=== PATIENT | female | born 1995 | race African-American/Black ===

== ENCOUNTER 2023-05-02 23:17 | Emergency (ER) | payer SELFPAY ==
--- OUTSIDE RECORDS SUMMARY | 2023-05-02 23:22 | XMS REPORT | Continuity of Care Document ---
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 code = 174 x10 3/uL 140.0-440.0 N PLTT) Mean Platelet Volume (test code 11.2 fL = MPV) Immature Granulocytes % (Auto) 0.2 % 0.0-5.0 N (test code = IMMGRAN%) Neutrophils % (Auto) (test code 52.4 % 36.0-70.0 N = NE%) Lymphocytes % (Auto) (test code 39.4 % 12.0-44.0 N = LY%) Monocytes % (Auto) (test code = 6.8 % 0.0-11.0 N MO%) Eosinophils % (Auto) (test code 0.8 % 0.0-7.0 N = EO%) Basophils % (Auto) (test code = 0.4 % 0.0-2.0 N BA%) Immature Granulocytes # (Auto) 0.01 x10 3/uL (test code = IMMGRAN#) Neutrophils # (Auto) (test code 2.7 x10 3/uL 1.6-7.4 N = NE#) Lymphocytes # (Auto) (test code 2.04 x10 3/uL 0.50-4.60 N = LY#) Monocytes # (Auto) (test code = 0.35 x10 3/uL 0.00-1.20 N MO#) Eosinophils # (Auto) (test code 0.04 x10 3/uL 0.00-0.74 N = EO#) Basophils # (Auto) (test code = 0.02 x10 3/uL 0.00-0.21 N BA#) nRBC Abs (test code = NRBCA) 0 nRBC Pct (test code = NRBCP) 0 % Comprehensive Metabolic [id number] 16:03:00 Test Item Value Reference Range Interpretation Comments SODIUM (test code = NA) 140.0 mmol/L 136.0-145.0 N Potassium,K (test code = 3.8 mmol/L 3.0-5.1 N K) Chloride (test code = 111 mmol/L 98-107 H CL) Carbon Dioxide (test 25 mmol/L 20-31 N code = CO2) Anion Gap (test code = 4 mmol/L 5-15 L GAP) Blood Urea Nitrogen 8 mg/dL 9-23 L (test code = BUN) Creatinine (test code = 0.90 mg/dL 0.55-1.02 N CREATT) Creatinine Clr Calc mL/min CRCL Not Pharmacy (test code = calcul ated, Ht < CRCLPHA) 5ft Estimated Glomerular 90 See_Comment Reporte d eGFR is Filt Rate (test code = based on the EGFR.XX) CKD-EPI 2020 equation thatdo es not use a race coefficient. Additional information can be found at:53-07-6923_u cb_ egfr_summary_fl peyman 5.pdf (kidney.o rg) [Automated message] The system which generated this result transmit rachel reference range : >=90 ml/min/1.73m2. The reference range was not used to interpret this result as normal/abnormal . BUN/Creatinine Ratio 9 ratio 10-20 L (test code = BCRATIO) Glucose (test code = 96 mg/dL 74-106 N GLU) Osmolality,Calculated 287.8 (test code = OSMOC) Calcium (test code = CA) 9.6 mg/dL 8.3-10.6 N Bilirubin,Total (test 0.6 mg/dL 0.2-1.1 N code = BILIT) Aspartate Amino 18 U/L 0-34 N Transferase (test code = AST) Alanine Aminotransferase 11 U/L 10-49 N (test code = ALT) Total Protein (test code 7.0 g/dL 5.7-8.2 N = TP) Albumin Level (test code 4.6 g/dL 3.2-4.8 N = ALB) Globulin (test code = 2.4 mg/dL 2.3-3.5 N GLOB) Albumin/Globulin Ratio 1.9 ratio 0.8-2.0 N (test code = AGRATIO) Alkaline Phosphatase 51 U/L 46-116 N (test code = ALP) Ethanol [id number] 16:03:00 Test Item Value Reference Range Interpretation Comments Ethanol (test code 4 mg/dL The pharm acological = ETOH) response to blo od alcohol levels mayvary from individual to i ndividual. The fatal ebony ntrationhas been reported t o be >400mg/dL. [id number] 16:03:00 Test Item Value Reference Range Interpretation Comments Acetaminophen (test < 0.2 mg/dL Interpre tive Comment: code = ACET) Therapeutic ran ge: 1.0-2.0 mg/dl T oxic concentration 4 hours post ingestion: >15.0 mg/dl Toxic concentration 1 2 hours post jacob stion: >4.0 mg/dl [id number] 16:03:00 Test Item Value Reference Range Interpretation Comments Salicylate (test code < 3.0 mg/dL Salicy late is toxic = SHERIDAN) above 30 mg/dL for adults. 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 Analgesic and Antipyretic Use ? 20- 100 mg/L ? ? Anti-Inflammatory Use ? 100-250 mg/L Toxic Range: ? Greater than 300 mg/LUnChildren's Medical Center PlanoAcetaminophen2023-08-17 09:26:04 Test Item Value Reference Range Interpretation Comments ACETAMINOP (test code = 12.0 ug/mL 10.0-30.0 0722750440) DILLON (test code = DILLON) Toxic: Greater than 200 ug/mL @ 4 hour post ingestion or greater than 50 ug/mL @ 12 hour post ingestion Lab Interpretation (test Normal code = 97915-6) [facility] CenterCom[facility] (83269) 2023-01-30 09:25:49 Test Item Value Reference Range Interpretation Comments NA (test code = 140 mmol/L 135-145 3411370317) K (test code = 3.7 mmol/L 3.5-5.0 2445710221) CL (test code = 109 mmol/L 98-108 H 4434309082) CO2 TOTAL (test code = 25 mmol/L 23-31 1746517520) AGAP (test code = 6 2-16 8621541704) BUN (test code = 9 mg/dL 7-23 6210617196) GLUCOSE (test code = 73 mg/dL 70-110 8617558828) CREATININE (test code = 0.72 mg/dL 0.50-1.04 0730312296) TOTAL BILI (test code = 0.4 mg/dL 0.1-1.4 3334625504) CALCIUM (test code = 9.2 mg/dL 8.6-10.6 8183304574) T PROTEIN (test code = 6.5 g/dL 6.3-8.2 3735065125) ALBUMIN (test code = 4.0 g/dL 3.5-5.0 6132310212) ALK PHOS (test code = 44 U/L 34-122 3595600097) ALTv (test code = 14 U/L 5-35 1742-6) AST(SGOT) (test code = 21 U/L 13-40 4341099286) eGFR (test code = 97.9 mL/min/1.73m2 4262698052) DILLON (test code = DILLON) Association of Glomerular Filtration Rate (GFR) and Staging of Kidney Disease* + --+ --+ ------+| GFR (mL/min/1.73 m2) ?| With Kidney Damage ?| ?Without Kidney Damage+ --------+ --------+ +| ?>90 ?| ?Stage one ?| ? Normal ?+ ---+ ---+ -------+| ?60-89 ?| ?Stage two ?| ? Decreased GFR ? + --+ --+ ------+| ?30-59 ?| ?Stage three ?| ? Stage three ? + --+ --+ ------+| ?15-29 ?| ?Stage four ? | ? Stage four ?+ ---+ ---+ -------+| ?<15 (or dialysis) ? ?| ?Stage five ? | ? Stage five ?+ ---+ ---+ -------+ *Each stage assumes the associated GFR level has been in effect for at least three months. ?Stages 1 to 5, with or without kidney disease, indicate chronic kidney disease. Notes: Determination of stages one and two (with eGFR >59mL/min/1.73 m2) requires estimation of kidney damage for at least three months as defined by structural or functional abnormalities of the kidney, manifested by either:Pathological abnormalities or Markers of kidney damage (including abnormalities in the composition of the blood or urine or abnormalities in imaging tests). Lab Interpretation Abnormal (test code = 99242-4) [facility] with Pclppskdjdbl0123-89-92 09:13:46 Test Item Value Reference Range Interpretation Comments WBC (test code = 6.49 See_Comment [Automated 9962-2) message] The sy stem which generated this result transmitted reference range : 4.30 - 11.10 10*3/?L. The reference range was not used to interpret this result as normal/abnormal . RBC (test code = 4.00 See_Comment [Automated 707-8) message] The sy stem which generated this result transmitted reference range : 3.93 - 5.25 10*6/?L. The reference range was not used to interpret this result as normal/abnormal . HGB (test code = 12.0 g/dL 11.6-15.0 718-7) HCT (test code = 34.9 % 35.7-45.2 L 4544-3) MCV (test code = 87.3 fL 80.6-95.5 787-2) MCH (test code = 30.0 pg 25.9-32.8 785-6) MCHC (test code = 34.4 g/dL 31.6-35.1 786-4) RDW-SD (test code = 41.1 fL 39.0-49.9 45032-4) RDW-CV (test code = 13.0 % 12.0-15.5 788-0) PLT (test code = 165 See_Comment L [Automated 777-3) message] The sy stem which generated this result transmitted reference range : 166 - 358 10*3/ ?L. The reference r mike was not used to interpret this result as normal/abnormal . MPV (test code = 11.7 fL 9.5-12.9 48679-9) NRBC/100 WBC (test 0.0 See_Comment [Automat ed code = 2240938864) message] The system which generated this result transmitted reference range : 0.0 - 10.0 /100 WBCs. The refer ence range was not u sed to interpret th is result as normal/abnormal . NRBC x10^3 (test code See_Comment [Auto mated = 7470217020) message] The s ystem which generated this result transmitted reference range : 10*3/?L. The reference range was not used to interpret this result as normal/abnormal . GRAN MAT (NEUT) % 48.5 % (test code = 770-8) IMM GRAN % (test code 0.20 % = 2971746169) LYMPH % (test code = 42.5 % 736-9) MONO % (test code = 6.6 % 5905-5) EOS % (test code = 1.7 % 713-8) BASO % (test code = 0.5 % 706-2) GRAN MAT x10^3(ANC) 3.15 10*3/uL 1.88-7.09 (test code = 1581765940) IMM GRAN x10^3 (test 0.00-0.06 code = 9787725427) LYMPH x10^3 (test code 2.76 10*3/uL 1.32-3.29 = 731-0) MONO x10^3 (test code 0.43 10*3/uL 0.33-0.92 = 742-7) EOS x10^3 (test code = 0.11 10*3/uL 0.03-0.39 711-2) BASO x10^3 (test code 0.03 10*3/uL 0.01-0.07 = 704-7) Lab Interpretation Abnormal (test code = 08793-6) [facility]- XR HAND 3 + V [id number] 00:00:00 [facility] : 1995 Sex: F PatientName: JESSICA SIMMONS Unit No: [id number] EXAMS: CPT CODE: [id number] XR HAND 3 + V RT [id number] PROCEDURE INFORMATION: Exam: XR Right Hand Exam date and time: 08/17/2021 5:27 PM Age: 26 years old Clinical indication: Injury or trauma; Other: Unknown; Sprain or strain; Hand; Right; Additional info: Hand pain andswelling S/P trauma TECHNIQUE: Imaging protocol: XR Right hand. Views: 3 or more views. Frontal Oblique Lateral COMPARISON: No relevant prior studies available. FINDINGS: Bones/joints: No acute fracture or dislocation identified. Soft tissues: Dorsal hand soft tissue swelling is present. IMPRESSION: Soft tissue swelling. No acute bony finding. at 1817 Reported and signed by: Tacos Vyas MD CC: April Aponte MD Technologist: RT John Trnscrbd D/ (1816) [email or web address].[email or web address] Orig Print D/T: S: 08/17/2021 (1817) [facility] NAME: JESSICA SIMMONS Radiology Department PHYS: April Ndiaye MD [address] : 1995 AGE: 26 SEX: F [place], [place] [address] LOC: [facility] PHONE #: [phone] EXAM DATE: 08/17/2021 STATUS: MISTY ER FAX #: [phone] RAD NO: Page 1 Signed ReportCOVID 19 Asymptomatic IH [id number] 19:09:00 Test Item Value Reference Range Interpretation Comments COVID 19 NEGATIVE NEGATIVE This test has b een Asymptomatic IH AG authorize d only for the (test code = detection ofpro teins from COVNONPUIAG) SARS-CoV-2, not for any other viruses orpathogens. Ne gative results should be treated as presumptive andconfirmed wi th a molecular assay , if necessary for patientmanageme nt. Negative result s do not rule out COVID- 19 andshould not b e used as the sole basis for treatment orpat ient management deci sions, including infec tion controldecision s. Negative result s should be considered i n thecontext of a patient's recent exposure s, history and thepresence of clinical signs and symptoms consis tent withCOVID-19. T his test has not been FD A cleared or approved; th e test hasbeen authori bharat by FDA under an Emerge ncy Use Authorization(E UA) for use by laborato homar certified under the CLIA thatmeet the re quirements to perform mode rate, high or waivedcomple xity tests. This evangelist t is authorized for use at thePoint of Car e (POC), i.e., in patien t care settingsoperati ng under a CLIA Certificat e of Waiver, Certifi mal ofCompliance, o r Certificate of Accreditation. This test is only authori zemary for the duration of thedeclaration that circumstances e xist justifying theauthorizatio n of emergency use o f in vitro diagnostic test sfor detection and/o r diagnosis of CO VID-19 under Hyzgzrn64 4(b)(1) of the Act, 21 U.S .C. 360bbb-3(b)(1), unless theauthorizatio n is terminated or r evoked sooner. COMPREHENSIVE METABOLIC [id number] 16:02:00 Test Item Value Reference Range Interpretation Comments SODIUM (test code = NA) 142 mEq/L 135-145 N POTASSIUM (test code = K) 4.1 mEq/L 3.5-5.0 N CHLORIDE (test code = CL) 107 mEq/L 100-115 N CARBON DIOXIDE (test code = CO2) 27 mEq/L 22-31 N ANION GAP (test code = GAP) 12.10 10-20 N GLUCOSE (test code = GLU) 79 mg/dL 65-110 N BLOOD UREA NITROGEN (test code = 8 mg/dL 7-18 N BUN) GLOMERULAR FILTRATION RATE (test 99 ml/min >60 N code = GFR) CREATININE (test code = CREAT) 0.8 mg/dL 0.5-1.0 N TOTAL PROTEIN (test code = PROT) 7.2 gm/dL 6.3-8.2 N ALBUMIN (test code = ALB) 4.0 gm/dL 3.4-4.8 N CALCIUM (test code = CA) 9.1 mg/dL 8.4-10.2 N BILIRUBIN TOTAL (test code = BILT) 0.5 mg/dL 0.2-1.0 N SGOT/AST (test code = AST) 27 units/L 15-37 N SGPT/ALT (test code = ALT) 44 units/L 12-78 N ALKALINE PHOSPHATASE TOTAL (test 46 units/L 46-116 N code = ALKP) CBC W/AUTO [id number] 15:10:00 Test Item Value Reference Range Interpretation Comments WHITE BLOOD CELL (test code = WBC) 5.2 K/mm3 6.5-12.3 L RED BLOOD CELL (test code = RBC) 3.94 M/mm3 3.51-4.69 N HEMOGLOBIN (test code = HGB) 11.9 g/dL 10.1-13.8 N HEMATOCRIT (test code = HCT) 34.6 % 32.5-41.8 N MEAN CELL VOLUME (test code = MCV) 87.8 fL 84.6-96.6 N MEAN CELL HGB (test code = MCH) 30.2 pg 27.3-33.9 N MEAN CELL HGB CONCETRATION (test 34.4 gm/dL 32.0-34.2 H code = MCHC) RED CELL DISTRIBUTION WIDTH (test 12.3 % 12.2-16.3 N code = RDW) PLATELET COUNT (test code = PLT) 180 K/mm3 134-363 N MEAN PLATELET VOLUME (test code = 10.9 fL 9.2-12.7 N MPV) NEUTROPHIL % (test code = NT%) 51.9 % 57.9-77.3 L LYMPHOCYTE % (test code = LY%) 40.1 % 14.5-29.7 H MONOCYTE % (test code = MO%) 6.4 % 3.6-10.2 N EOSINOPHIL % (test code = EO%) 0.6 % 0.0-3.0 N BASOPHIL % (test code = BA%) 0.6 % 0.1-0.9 N NEUTROPHIL # (test code = NT#) 2.7 K/mm3 LYMPHOCYTE # (test code = LY#) 2.1 K/mm3 MONOCYTE # (test code = MO#) 0.3 K/mm3 EOSINOPHIL # (test code = EO#) 0.03 K/mm3 BASOPHIL # (test code = BA#) 0.0 K/mm3 RBC MORPHOLOGY REQUIRED (test code NORMAL NORMAL = RBCM) PLATELET MORPHOLOGY REQUIRED (test NORMAL NORMAL code = PLTMR) - XR HAND 3+V [id number] 02:56:00 [facility] 1995 Sex: F Patient Name: JESSICA SIMMONS Unit No: [id number] EXAMS: CPT CODE: [id number] XR HAND 3+[place] [address] - XR HAND 3+V RT, 10/09/2020 2:22 AM Reason For Examination: Pain s/p fall Comparison: None available Location: R16: Findings: No evidence of acute fracture or dislocation. No radiopaque foreign body. Impression: No plain film evidence of acute fracture or dislocation Electronically Signed by Jhon Bill on10/09/2020 at 0256 Reported and signed by: Jhon Bill CC: Edvin LAL; Jax Cagle Technologist: Jarocho Viveros, RT(R) Transcrpt Date/Tm/Trnsp: 10/09/2020 (025) t.[email or web address] Orig Print D/T: S: 10/09/2020 (0259) [facility] NAME: JESSICA SIMMONS [address] PHYS: [place] [address] : 1995 AGE: 25 SEX: F LOC: [facility] PHONE #:[phone] EXAM DATE: 10/09/2020 STATUS: REG ER FAX #: [phone] RADIOLOGY NO: PAGE 1 Signed Report- XR WRIST 3 + V RT 2020-10-09 02:55:00 [facility] : 1995 Sex: F Patient Name: JESSICA SIMMONS Unit No: [id number] EXAMS: CPT CODE: [id number] XR WRIST 3 + [place] RT [address] - XR WRIST 3 + V RT, 10/09/2020 2:22 AM Reason For Examination: Pain s/p fall Comparison: None available Location: R16:Findings: No evidence of acute fracture or dislocation. No radiopaque foreign body. Impression: No plain film evidence of acute fracture or dislocation at 0255 Reported and signed by: Alejandro Bill CC: Edvin LAL; Jax Burger MD Technologist: Jarocho Viveros, RT(R) Transcrpt Date/Tm/Trnsp: 10/09/2020 (254) NithinRSaudSR31 Orig Print D/T: S: 10/09/2020 (257) [facility] NAME: JESSICA SIMMONS [address] PHYS: [place] [address] : 1995 AGE: 25 SEX: F LOC: [facility] PHONE #: [phone] EXAM DATE: 10/09/2020 STATUS: REG ER FAX #: [phone] RADIOLOGY NO: PAGE 1 Signed ReportNeisseria gonorrhoeae, throat [id number] 15:11:00 Test Item Value Reference Range Interpretation Comments Neisseria gonorrhoeae, throat Negative Negative culture (test code = 3553) [facility] [id number] 15:11:00 Test Item Value Reference Range Interpretation Comments hepatitis B surface antigen (test Negative Negative code = 79) [facility], [id number] 15:11:00 Test Item Value Reference Range Interpretation Comments hepatitis C antibody, serum (test code 0.1 0.0-0.9 = 5199-5) [facility] (Chemiluminescent Microparticle Immuno Assay) 2019-10-29 15:11:00 Test Item Value Reference Range Interpretation Comments HIV-CMIA (Chemiluminescent Non Reactive Non Reactive Microparticle Immuno Assay) (test code = 102524) [facility] plasma reagin antibody, [id number] 15:11:00 Test Item Value Reference Range Interpretation Comments rapid plasma reagin antibody, Non Reactive Non Reactive serum (test code = 5291-0) [facility]HERPES SIM[facility]X VIRUS TYPE 1 AB.IGG (PT; SER; QN; ) 2019-10-29 15:11:00 Test Item Value Reference Range Interpretation Comments HERPES SIMPLEX VIRUS TYPE 1 49.00 index 0.00-0.90 H AB.IGG (PT; SER; QN; ) (test code = 2432) [facility] HospitalNeisseria gonorrhoeae DNA [id number] 15:11:00 Test Item Value Reference Range Interpretation Comments Neisseria gonorrhoeae DNA probe Negative Negative (test code = 90722-2) [facility] [id number] 15:11:00 Test Item Value Reference Range Interpretation Comments chlamydia DNA probe (test code = Negative Negative 61127-0) [facility] [id number] 14:46:52 Test Item Value Reference Range Interpretation Comments HIV rapid test results (test code = negative 90520) [facility]URINAL[facility]IS [id number] 14:05:00 Test Item Value Reference Range Interpretation Comments UA COLOR (test code = YELLOW YELLOW COLU) UA APPEARANCE (test code CLEAR CLEAR = APPU) UA GLUCOSE DIPSTICK (test NORMAL MG/DL NORMAL code = DGLUU) UA BILIRUBIN DIPSTICK NEGATIVE MG/DL NEGATIVE (test code = BILU) UA KETONE DIPSTICK (test NEGATIVE MG/DL NEGATIVE code = KETU) UA SPECIFIC GRAVITY (test 1.010 1.003-1.030 N code = SGU) UA BLOOD DIPSTICK (test NEGATIVE Chidi/mm3 NEGATIVE code = KAREN) UA PH DIPSTICK (test code 6.5 5.0-9.0 N = JER) UA PROTEIN DIPSTICK (test NEGATIVE MG/DL NEGATIVE code = PROU) UA UROBILINIOGEN DIPSTICK NORMAL MG/DL NORMAL (test code = URO) UA NITRITE DIPSTICK (test NEGATIVE NEGATIVE code = NADINE) UA LEUKOCYTE ESTERASE NEGATIVE /mm3 NEGATIVE DIPSTICK (test code = LEUU) UA CULTURE NEEDED? (test NEGATIVE, NO CULTURE Culture Chk code = UACULT) Criteria SOURCE OF URINE: CLEAN CATCHUR HCG [id number] 14:05:00 Test Item Value Reference Range Interpretation Comments UR HCG QUAL (test code = HCGQLU) NEGATIVE NEGATIVE SOURCE OF URINE: CLEAN CATCHURINALYSIS [id number] 14:02:00 Test Item Value Reference Range Interpretation Comments UA COLOR (test code = COLU) YELLOW YELLOW UA APPEARANCE (test code = CLEAR CLEAR APPU) UA GLUCOSE DIPSTICK (test NORMAL MG/DL NORMAL code = DGLUU) UA BILIRUBIN DIPSTICK (test NEGATIVE MG/DL NEGATIVE code = BILU) UA KETONE DIPSTICK (test NEGATIVE MG/DL NEGATIVE code = KETU) UA SPECIFIC GRAVITY (test 1.010 1.003-1.030 N code = SGU) UA BLOOD DIPSTICK (test code NEGATIVE Chidi/mm3 NEGATIVE = KAREN) UA PH DIPSTICK (test code = 6.5 5.0-9.0 N JER) UA PROTEIN DIPSTICK (test NEGATIVE MG/DL NEGATIVE code = PROU) UA UROBILINIOGEN DIPSTICK NORMAL MG/DL NORMAL (test code = URO) UA NITRITE DIPSTICK (test NEGATIVE NEGATIVE code = NADINE) UA LEUKOCYTE ESTERASE NEGATIVE /mm3 NEGATIVE DIPSTICK (test code = LEUU) UA CULTURE NEEDED? (test Criteria Culture Chk code = UACULT) SOURCE OF URINE: CLEAN CATCHUR HCG [id number] 14:02:00 Test Item Value Reference Range Interpretation Comments UR HCG QUAL (test code = HCGQLU) NEGATIVE SOURCE OF URINE: CLEAN CATCHRAPID PLASMA [id number] 23:42:00 Test Item Value Reference Range Interpretation Comments RAPID PLASMA REAGIN (test code = NON REAC NON REAC RPR) HIV 12 AB [id number] 23:42:00 Test Item Value Reference Range Interpretation Comments HIV 1 2 COMBO AG/AB SCREEN AB/AG NON REACTIVE NONREACTIVE (test code = [id number]) RAPID PLASMA [id number] 16:14:00 Test Item Value Reference Range Interpretation Comments RAPID PLASMA REAGIN (test code = RPR) NON REAC HIV 12 AB [id number] 16:14:00 Test Item Value Reference Range Interpretation Comments HIV 1 2 COMBO AG/AB SCREEN AB/AG NON REACTIVE NONREACTIVE (test code = [id number]) COMPREHENSIVE METABOLIC [id number] 15:18:00 Test Item Value Reference Range Interpretation Comments SODIUM (test code = NA) 139 MMOL/L 137-145 N POTASSIUM (test code = 3.9 MMOL/L 3.5-5.1 N K) CHLORIDE (test code = 106 MMOL/L 98-107 N CL) CARBON DIOXIDE (test 27 MMOL/L 22-30 N code = CO2) GLUCOSE (test code = 72 MG/DL 74-106 L GLU) BLOOD UREA NITROGEN 15 MG/DL 7-17 N (test code = BUN) GLOMERULAR FILTRATION > 60 Report ing units: RATE (test code = GFR) ml/mi n/1.73 m2 (Modified MDRD Formula)Referen ce Range: > or = 6 0 ml/min/1.73 m2 CREATININE (test code = 0.70 MG/DL 0.52-1.04 N CREAT) TOTAL PROTEIN (test 7.4 G/DL 6.3-8.2 N code = PROT) ALBUMIN (test code = 4.3 G/DL 3.5-5.0 N ALB) CALCIUM (test code = 9.4 MG/DL 8.4-10.2 N CA) BILIRUBIN TOTAL (test 0.3 MG/DL 0.2-1.3 N code = BILT) SGOT/AST (test code = 25 UNITS/L 14-36 N AST) SGPT/ALT (test code = 13 UNITS/L <35 ALT) ALKALINE PHOSPHATASE 56 UNITS/L 38-126 N (test code = ALKP) HCG SERUM [id number] 15:18:00 Test Item Value Reference Range Interpretation Comments HCG SERUM QUAL (test code = HCGQL) NEGATIVE NEGATIVE A COMPREHENSIVE METABOLIC [id number] 14:59:00 Test Item Value Reference Range Interpretation Comments SODIUM (test code = NA) 139 MMOL/L 137-145 N POTASSIUM (test code = 3.9 MMOL/L 3.5-5.1 N K) CHLORIDE (test code = 106 MMOL/L 98-107 N CL) CARBON DIOXIDE (test 27 MMOL/L 22-30 N code = CO2) GLUCOSE (test code = 72 MG/DL 74-106 L GLU) BLOOD UREA NITROGEN 15 MG/DL 7-17 N (test code = BUN) GLOMERULAR FILTRATION > 60 Report ing units: RATE (test code = GFR) ml/mi n/1.73 m2 (Modified MDRD Formula)Referen ce Range: > or = 6 0 ml/min/1.73 m2 CREATININE (test code = 0.70 MG/DL 0.52-1.04 N CREAT) TOTAL PROTEIN (test 7.4 G/DL 6.3-8.2 N code = PROT) ALBUMIN (test code = 4.3 G/DL 3.5-5.0 N ALB) CALCIUM (test code = 9.4 MG/DL 8.4-10.2 N CA) BILIRUBIN TOTAL (test 0.3 MG/DL 0.2-1.3 N code = BILT) SGOT/AST (test code = 25 UNITS/L 14-36 N AST) SGPT/ALT (test code = 13 UNITS/L <35 ALT) ALKALINE PHOSPHATASE 56 UNITS/L 38-126 N (test code = ALKP) HCG SERUM [id number] 14:59:00 Test Item Value Reference Range Interpretation Comments HCG SERUM QUAL (test code = HCGQL) NEGATIVE COMPREHENSIVE METABOLIC [id number] 14:58:00 Test Item Value Reference Range Interpretation Comments SODIUM (test code = NA) 139 MMOL/L 137-145 N POTASSIUM (test code = 3.9 MMOL/L 3.5-5.1 N K) CHLORIDE (test code = 106 MMOL/L 98-107 N CL) CARBON DIOXIDE (test 27 MMOL/L 22-30 N code = CO2) GLUCOSE (test code = 72 MG/DL 74-106 L GLU) BLOOD UREA NITROGEN 15 MG/DL 7-17 N (test code = BUN) GLOMERULAR FILTRATION > 60 Report ing units: RATE (test code = GFR) ml/mi n/1.73 m2 (Modified MDRD Formula)Referen ce Range: > or = 6 0 ml/min/1.73 m2 CREATININE (test code = 0.70 MG/DL 0.52-1.04 N CREAT) TOTAL PROTEIN (test 7.4 G/DL 6.3-8.2 N code = PROT) ALBUMIN (test code = 4.3 G/DL 3.5-5.0 N ALB) CALCIUM (test code = MG/DL 8.7-9.7 CA) BILIRUBIN TOTAL (test 0.3 MG/DL 0.2-1.3 N code = BILT) SGOT/AST (test code = 25 UNITS/L 14-36 N AST) SGPT/ALT (test code = 13 UNITS/L <35 ALT) ALKALINE PHOSPHATASE 56 UNITS/L 38-126 N (test code = ALKP) HCG SERUM [id number] 14:58:00 Test Item Value Reference Range Interpretation Comments HCG SERUM QUAL (test code = HCGQL) NEGATIVE COMPREHENSIVE METABOLIC [id number] 14:57:00 Test Item Value Reference Range Interpretation Comments SODIUM (test code = NA) 139 MMOL/L 137-145 N POTASSIUM (test code = 3.9 MMOL/L 3.5-5.1 N K) CHLORIDE (test code = 106 MMOL/L 98-107 N CL) CARBON DIOXIDE (test MMOL/L 22-30 code = CO2) GLUCOSE (test code = MG/DL 74-106 GLU) BLOOD UREA NITROGEN MG/DL 7-17 (test code = BUN) GLOMERULAR FILTRATION > 60 Report ing units: RATE (test code = GFR) ml/mi n/1.73 m2 (Modified MDRD Formula)Referen ce Range: > or = 6 0 ml/min/1.73 m2 CREATININE (test code = 0.70 MG/DL 0.52-1.04 N CREAT) TOTAL PROTEIN (test G/DL 6.3-8.2 code = PROT) ALBUMIN (test code = 4.3 G/DL 3.5-5.0 N ALB) CALCIUM (test code = MG/DL 8.7-9.7 CA) BILIRUBIN TOTAL (test 0.3 MG/DL 0.2-1.3 N code = BILT) SGOT/AST (test code = UNITS/L 15-37 AST) SGPT/ALT (test code = UNITS/L <35 ALT) ALKALINE PHOSPHATASE UNITS/L 38-126 (test code = ALKP) HCG SERUM [id number] 14:57:00 Test Item Value Reference Range Interpretation Comments HCG SERUM QUAL (test code = HCGQL)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
[2023-05-03] MEDS ORDERED: ACETAMINOPHEN 500 MG TAB ONE (00:27)
[2023-05-03] MEDS ORDERED: IBUPROFEN 400 MG TAB ONE (00:27)
[2023-05-03 00:30] LABS: Absolute Lymphocytes (CBC) 2.6 K/uL (0.7-4.9); Hematocrit 39.4 % (36.0-45.0); Lymphocytes % 37.9 % (15.3-44.8); MCV 88.7 fL (80-100); MPV 9.3 fL (7.6-11.3); Platelets 229 thou/uL (152-406); RBC Red Blood Cell Count 4.45 M/uL (3.86-4.86)
[2023-05-03 00:46] LABS: Potassium 3.6 mEq/L (3.5-5.1)
[2023-05-03] MEDS ORDERED: LIDOCAINE 2% W/EPI 1:200,000 MPF 20 ML VIAL IM ONE (01:24)
[2023-05-03 02:03] LABS: Specific Gravity 1.021 (1.005-1.030)
--- NOTE | 2023-05-03 02:05 | EDPHYS ---
Physician Documentation [facility] Name: Crissy Bazzi Age: 28 yrs Sex: Female : 1995 Arrival Date: 05/02/2023 Time: 23:17 Bed 19 Private MD: ED Physician Philippe Chávez HPI: 05/02 23:46 This 28 yrs old Black Female presents to ER via Ambulatory with complaints of High ec2 Blood Pressure. 23:46 Patient arrives today for evaluation of asymptomatic hypertension. States that she has ec2 noted blood pressures in the 150s to 160s range, reports that she has no difficulty breathing or chest pain. Patient reports she has nonspecific headaches occasionally. Reports that she has been seen multiple times for same complaints and has not been started on antihypertensive. States that she does not have a primary care doctor. It seems her primary reason of coming to the ED tonight is specifically because she has dentalgia, was told she needed to have the tooth removed however the dentist would not remove her tooth with her blood pressure. Patient is on amoxicillin for her possible dental infection.. Historical: - Allergies: 23:27 No Known Allergies; rv - PMHx: 23:27 None; rv - PSHx: 23:27 None; rv - Immunization history:: Adult Immunizations up to date. - Social history:: Smoking status: Patient reports the use of cigarette tobacco products, smokes one pack cigarettes per day. ROS: 23:46 Constitutional: as per hpi ec2 Exam: 23:46 Constitutional: GEN: NAD Head: atraumatic Eyes: EOMI Ears: External ears are normal. ec2 Mouth: Dental caries noted to the second and third teeth. No erythema at the gumline noted. No facial swelling noted CV: regular rate LUNGS: no respiratory distress ABD: non-distended SKIN: no evidence of rashes MSK: no evidence of trauma NEURO: moves all extremities equally Vital Signs: 23:24 BP 153 / 105; Pulse 89; Resp 18; Temp 98; Pulse Ox 100% ; Weight 50.8 kg; Height 4 ft. rv 10 in. ; 05/03 00:45 BP 148 / 97; Pulse 88; Resp 16; Pulse Ox 100% on R/A; jb4 01:45 BP 161 / 95; Pulse 85; Resp 16; Pulse Ox 99% on R/A; jb4 05/02 23:24 Body Mass Index 23.41 (50.80 kg, 147.32 cm) rv Procedures: 01:16 Nerve block: (dental) of Posterior Superior Alveolar Nerve Block. Medication: Lidocaine ec2 1% with epinephrine, Amount: 10 mls were injected, Effect: the patient's symptoms are improved, Performed by Philippe Chávez MD Patient tolerated well. MDM: 05/02 23:23 Patient medically screened. ec2 23:46 Data reviewed: vital signs. ED course: patient arrives today due to concern for ec2 asymptomatic hypotension. Examination remarkable for well-appearing nontoxic individual is otherwise in no acute distress. Will obtain basic lab work to evaluate for endorgan dysfunction. We will also send urine testing. I instructed her that we will obtain this lab work and potentially start her and an antihypertensive. 05/03 01:03 ED course: CBC and metabolic profile reassuring.. ec2 01:18 ED course: Tylenol and ibuprofen given for her dentalgia, I performed a dental block ec2 with improvement in her pain.. 02:04 ED course: Urine pride negative. Will discharge home prescription for ec2 hydrochlorothiazide. Return precautions given.. 05/02 23:45 Order name: CBC with Diff; Complete Time: 01:02 ec2 05/02 23:45 Order name: BMP; Complete Time: 01:02 ec2 05/02 23:45 Order name: Test, Urine; Complete Time: 02:04 ec2 Administered Medications: 00:25 Drug: Acetaminophen PO 1000 mg PO once Route: PO; jb4 00:25 Drug: Ibuprofen PO 800 mg PO once Route: PO; jb4 01:31 Not Given (Other Intervention Used): fjfrzievo-iajvfqjnqlu-1%: (1:100,000) 10 ml 20 ml jb4 Infiltration once; to bedside 01:31 Drug: Lidocaine-Epinephrine Infiltration -2 % (1:100,000) 10 ml Infiltration once; to jb4 bedside {Note: administered by ER provider.} Route: Infiltration; Disposition Summary: 05/03/23 02:05 Discharge Ordered Notes: Location: Home ec2 Condition: Stable ec2 Diagnosis - Essential (primary) hypertension ec2 - Dental caries, unspecified ec2 Followup: ec2 - With: Private Physician - When: - Reason: Recheck today's complaints Discharge Instructions: - Discharge Summary Sheet ec2 - Dental Caries, Adult ec2 - Hypertension, Adult ec2 Forms: - Medication Reconciliation Form ec2 - Thank You Letter ec2 - Antibiotic Education ec2 - Prescription Opioid Use ec2 - Patient Portal Instructions ec2 - Leadership Thank You Letter ec2 Prescriptions: - Hydrochlorothiazide 12.5 mg Oral Tablet - take 1 tablet ORAL route once daily; 30 tablet; Refills: 0, Product Selection ec2 Permitted Signatures: Dispatcher [employer] EDShamir Jo RN RN jb4 Alan Babin RN RN Philippe Chávez MD MD ec2 Corrections: (The following items were deleted from the chart) 01:05/02 23:46 Patient arrives today for evaluation of asymptomatic hypertension. States ec2 that she has noted blood pressures in the 150s to 160s range, reports that she has no difficulty breathing or chest pain. Patient reports she has nonspecific headaches occasionally. Reports that she has been seen multiple times for same complaints and has not been started on antihypertensive. States that she does not have a primary care doctor. It seems her primary mode of of coming to the ED tonight is specifically because she has dentalgia, was told she needed to have the tooth removed however the dentist would not remove her tooth with related blood pressure. Patient is on amoxicillin for her possible dental infection.. ec2 05/03 01:18 05/02 23:46 Constitutional: GEN: NAD Head: atraumatic Eyes: EOMI Ears: External ears ec2 are normal. CV: regular rate LUNGS: no respiratory distress ABD: non-distended SKIN: no evidence of rashes MSK: no evidence of trauma NEURO: moves all extremities equally ec2
--- NOTE | 2023-05-03 02:05 | ER ---
Nurse's Notes [facility] Name: Crissy Bazzi Age: 28 yrs Sex: Female : 1995 Arrival Date: 05/02/2023 Time: 23:17 Bed 19 Private MD: Diagnosis: Essential (primary) hypertension;Dental caries, unspecified Presentation: 05/02 23:24 Chief complaint: Patient states: have been dealing with high blood pressure for approx rv 7 months now, and having problems with dental procedure because of high blood pressure. pt has no PCP at this time. and pt does not have a prescription for blood pressure. Coronavirus screen: At this time, the client does not indicate any symptoms associated with coronavirus-19. Ebola Screen: No symptoms or risks identified at this time. Initial Sepsis Screen: Does the patient meet any 2 criteria? No. Patient's initial sepsis screen is negative. Does the patient have a suspected source of infection? No. Patient's initial sepsis screen is negative. Risk Assessment: Do you want to hurt yourself or someone else? Patient reports no desire to harm self or others. 23:24 Method Of Arrival: Ambulatory rv 23:24 Acuity: FALLON 3 rv 23:24 Onset of symptoms was May 02, 2023. rv Triage Assessment: 23:27 General: Appears comfortable, Behavior is calm, cooperative. Pain: Denies pain. Neuro: rv Level of Consciousness is awake, alert, obeys commands, Oriented to person, place, time, situation. Cardiovascular: Capillary refill < 3 seconds Patient's skin is warm and dry. Respiratory: Airway is patent Respiratory effort is even, unlabored. Derm: Skin is intact. Historical: - Allergies: 23:27 No Known Allergies; rv - PMHx: 23:27 None; rv - PSHx: 23:27 None; rv - Immunization history:: Adult Immunizations up to date. - Social history:: Smoking status: Patient reports the use of cigarette tobacco products, smokes one pack cigarettes per day. Screenin/18 01:45 [facility] ED Fall Risk Assessment (Adult) History of falling in the last 3 months, jb4 including since admission No falls in past 3 months (0 pts). Abuse screen: Denies threats or abuse. Nutritional screening: No deficits noted. Tuberculosis screening: No symptoms or risk factors identified. Assessment: 00:30 Reassessment: Patient appears in no apparent distress at this time. Patient and/or jb4 family updated on plan of care and expected duration. Pain level reassessed. Patient is alert, oriented x 3, equal unlabored respirations, skin warm/dry/pink. 01:30 Reassessment: Patient appears in no apparent distress at this time. Patient and/or jb4 family updated on plan of care and expected duration. Pain level reassessed. Patient is alert, oriented x 3, equal unlabored respirations, skin warm/dry/pink. 02:27 Reassessment: Patient appears in no apparent distress at this time. Patient and/or jb4 family updated on plan of care and expected duration. Pain level reassessed. Patient is alert, oriented x 3, equal unlabored respirations, skin warm/dry/pink. Vital Signs: 05/02 23:24 BP 153 / 105; Pulse 89; Resp 18; Temp 98; Pulse Ox 100% ; Weight 50.8 kg; Height 4 ft. rv 10 in. ; 05/03 00:45 BP 148 / 97; Pulse 88; Resp 16; Pulse Ox 100% on R/A; jb4 01:45 BP 161 / 95; Pulse 85; Resp 16; Pulse Ox 99% on R/A; jb4 05/02 23:24 Body Mass Index 23.41 (50.80 kg, 147.32 cm) rv ED Course: 05/02 23:21 Patient arrived in ED. ag3 23:23 Philippe Chávez MD is Attending Physician. ec2 23:27 Triage completed. rv 23:28 Arm band placed on right wrist. rv 05/03 00:19 Inserted saline lock: 20 gauge in left antecubital area, using aseptic technique. Blood wm collected. 00:20 BMP Sent. wm 00:20 CBC with Diff Sent. wm 01:14 Shamir Cohen, RN is Primary Nurse. jb4 02:28 Patient has correct armband on for positive identification. Placed in gown. Bed in low jb4 position. Call light in reach. Side rails up X 1. 02:28 No provider procedures requiring assistance completed. IV discontinued, intact, jb4 bleeding controlled, No redness/swelling at site. Pressure dressing applied. Administered Medications: 00:25 Drug: Acetaminophen PO 1000 mg PO once Route: PO; jb4 00:25 Drug: Ibuprofen PO 800 mg PO once Route: PO; jb4 01:31 Not Given (Other Intervention Used): ynvywtncg-yeiygxqdwtt-7%: (1:100,000) 10 ml 20 ml jb4 Infiltration once; to bedside 01:31 Drug: Lidocaine-Epinephrine Infiltration -2 % (1:100,000) 10 ml Infiltration once; to jb4 bedside {Note: administered by ER provider.} Route: Infiltration; Outcome: 02:05 Discharge ordered by . ec2 02:28 Discharged to home ambulatory, jb4 02:28 Condition: stable 02:28 Discharge instructions given to patient, Instructed on discharge instructions, follow up and referral plans. medication usage, Demonstrated understanding of instructions, follow-up care, medications, Prescriptions given X :31 Patient left the ED. jb4 Signatures: Shamir Cohen, RN RN jb4 Alan Babin, RN RN Clari Hassan Wendy wm Corral, Edwin, MD MD ec2
[2023-05-03 02:47] VITALS: TEMP 98
[2023-05-03 02:58] VITALS: BP 161/95; O2SAT 99
== END 2023-05-03 02:31 | disposition home or self-care (01) ==
LOC: ER 23:17
DX: I10 Essential (primary) hypertension (principal); K02.9 Dental caries, unspecified
CPT/HCPCS: 36415; 80048; 81025; 85025; 99284

== ENCOUNTER → 2023-08-22 | Emergency (ER) | payer SELFPAY ==
[~2023-08-22] MED LIST: IBUPROFEN 200 MG TAB PO ONE
[2023-08-22 10:29] LABS: SARS-CoV-2 Antigen Rapid Res Negative (Negative)
--- NOTE | 2023-08-22 10:31 | ER ---
Nurse's Notes [facility] Name: Crissy Bazzi Age: 28 yrs Sex: Female : 1995 Arrival Date: 08/22/2023 Time: 08:46 Bed 12 Private MD: Diagnosis: Acute upper respiratory infection, unspecified;Headache;Pain in throat Presentation: 08/21 09:18 Chief complaint: Sore throat, cough, headache, fever, and body aches x 1 week. hb Coronavirus screen: Client presents with at least one sign or symptom that may indicate coronavirus-19. Standard/surgical mask placed on the client. Provider contacted for isolation considerations. Ebola Screen: No symptoms or risks identified at this time. Initial Sepsis Screen: Does the patient meet any 2 criteria? No. Patient's initial sepsis screen is negative. Does the patient have a suspected source of infection? No. Patient's initial sepsis screen is negative. Risk Assessment: Do you want to hurt yourself or someone else? Patient reports no desire to harm self or others. Onset of symptoms was August 15, 2023. 09:18 Method Of Arrival: Ambulatory 09:18 Acuity: FALLON 4 hb Triage Assessment: 09:19 General: Appears in no apparent distress. Behavior is calm, cooperative. Pain: Pain hb currently is 8 out of 10 on a pain scale. EENT: Reports sore throat. Neuro: Level of Consciousness is awake, alert, obeys commands, Oriented to person, place, time, situation. Cardiovascular: Patient's skin is warm and dry. Respiratory: Reports cough that is Respiratory effort is even, unlabored, Respiratory pattern is regular, symmetrical. Musculoskeletal: Reports body aches. 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 - Social history:: Smoking status: Patient reports the use of cigarette tobacco products. Screenin:20 [facility] ED Fall Risk Assessment (Adult) History of falling in the last 3 months, hb including since admission No falls in past 3 months (0 pts) Confusion or Disorientation No (0 pts) Intoxicated or Sedated No (0 pts) Impaired Gait No (0 pts) Mobility Assist Device Used No (0 pt) Altered Elimination No (0 pt) Score/Fall Risk Level 0 - 2 = Low Risk Oriented to surroundings, Maintained a safe environment, Educated pt \T\ family on fall prevention, incl call for assistance when getting out of bed. Abuse screen: Denies threats or abuse. Denies injuries from another. Nutritional screening: No deficits noted. Tuberculosis screening: No symptoms or risk factors identified. Assessment: 09:20 General: See triage assessment.. hb 10:06 Reassessment: Patient appears in no apparent distress at this time. Patient and/or hb family updated on plan of care and expected duration. Pain level reassessed. Patient is alert, oriented x 3, equal unlabored respirations, skin warm/dry/pink. Neuro: Level of Consciousness is awake, alert, obeys commands. Cardiovascular: Patient's skin is warm and dry. Respiratory: Airway is patent Respiratory effort is even, unlabored, Respiratory pattern is regular, symmetrical. Vital Signs: 09:18 BP 138 / 99; Pulse 70; Resp 16; Temp 99.1(O); Pulse Ox 100% on R/A; Weight 55.79 kg hb (R); Height 4 ft. 10 in. (R); Pain 8/10; 10:07 BP 128 / 88; Pulse 71; Resp 16; Pulse Ox 100% on R/A; hb 09:18 Body Mass Index 25.71 (55.79 kg, 147.32 cm) hb 09:18 Pain Scale: Adult hb ED Course: 08:48 Patient arrived in ED. rg4 08:54 Jeremiah Baldwin MD is Attending Physician. magali 09:02 Attending Physician role handed off by Jeremiah Baldwin MD ms3 09:02 Alex Lilly DO is Attending Physician. ms3 09:19 Triage completed. hb 09:19 Arm band placed on right wrist. hb 09:20 Patient has correct armband on for positive identification. Provided Education on: call hb light use. Client placed on continuous cardiac and pulse oximetry monitoring. NIBP monitoring applied. Pulse ox on. NIBP on. 09:34 Angelina Rodriguez, HUMBERTO is Primary Nurse. hb 09:50 Warm blanket given. zm 09:50 COVID swab sent to lab. Flu and/or RSV swab sent to lab. Strep swab sent to lab. zm 09:51 SARS RAPID Sent. zm 09:51 Strep Sent. zm 09:51 Flu Sent. zm 10:06 No provider procedures requiring assistance completed. Patient did not have IV access hb during this emergency room visit. 10:08 Door closed. hb 10:30 Marlon Alicia DO is Referral Physician. ms3 Administered Medications: 10:06 Drug: Ibuprofen PO 600 mg PO once Route: PO; hb 10:47 Follow up: Response: No adverse reaction hb Medication: 09:20 VIS not applicable for this client. hb Outcome: 10:30 Discharge ordered by MD. ms3 10:47 Discharged to home ambulatory, hb 10:47 Condition: stable 10:47 Discharge instructions given to patient, Instructed on discharge instructions, follow up and referral plans. medication usage, Demonstrated understanding of instructions, follow-up care, medications, Prescriptions given X 2, 10:47 Patient left the ED. hb Signatures: Jeremiah Baldwin MD MD cha Baxter, Heather RN RN Iris Troncoso 4 Alex Lilly DO DO ms3 Macarena Erickson Corrections: (The following items were deleted from the chart) 09:20 09:19 Arm band placed on hb hb 10:07 09:20 Client placed on continuous cardiac and pulse oximetry monitoring. NIBP hb monitoring applied. hb
--- NOTE | 2023-08-22 10:31 | EDPHYS ---
Physician Documentation [facility] Name: Crissy Bazzi Age: 28 yrs Sex: Female : 1995 Arrival Date: 08/22/2023 Time: 08:46 Bed 12 Private MD: ED Physician Alex Lilly HPI: 08/21 09:46 This 28 yrs old Black Female presents to ER via Ambulatory with complaints of Sore wa3 Throat, Headache. 09:46 28-year-old female with with past medical history of hypertension [place] [facility] [place] for throat pain that is been ongoing for 3 days. Patient states she developed headache with chills yesterday. Patient states her pain is an 8/10 and worse with swallowing. Patient states she took ibuprofen yesterday with mild relief in her symptoms. 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 - Social history:: Smoking status: Patient reports the use of cigarette tobacco products. ROS: 09:49 Constitutional: Negative for fever, and chills. Neck: Negative for injury, pain, and ms3 swelling, Cardiovascular: Negative for chest pain, and palpitations. Respiratory: Negative for shortness of breath, cough, wheezing, and pleuritic chest pain, Abdomen/GI: Negative for abdominal pain, nausea, vomiting, diarrhea, and constipation, MS/Extremity: Negative for injury and deformity, Skin: Negative for injury, rash, and discoloration, 09:49 ENT: Positive for sore throat, Exam: 09:49 Constitutional: This is a well developed, well nourished patient who is awake, alert, ms3 and in no acute distress. Head/Face: Normocephalic, atraumatic. Neck: Trachea midline, no cervical lymphadenopathy. Supple, full range of motion without nuchal rigidity, or vertebral point tenderness. No Meningismus. Chest/axilla: Normal chest wall appearance and motion. Nontender with no deformity. Cardiovascular: Regular rate and rhythm with a normal S1 and S2. No gallops, murmurs, or rubs. Normal PMI, no JVD. No pulse deficits. Respiratory: Lungs have equal breath sounds bilaterally, clear to auscultation and percussion. No rales, rhonchi or wheezes noted. No increased work of breathing, no retractions or nasal flaring. Abdomen/GI: Soft, non-tender, with normal bowel sounds. No distension or tympany. No guarding or rebound. No evidence of tenderness throughout. Skin: Warm, dry with normal turgor. Normal color with no rashes, no lesions, and no evidence of cellulitis. MS/ Extremity: Pulses equal, no cyanosis. Neurovascular intact. Full, normal range of motion. Vital Signs: 09:18 BP 138 / 99; Pulse 70; Resp 16; Temp 99.1(O); Pulse Ox 100% on R/A; Weight 55.79 kg hb (R); Height 4 ft. 10 in. (R); Pain 8/10; 10:07 BP 128 / 88; Pulse 71; Resp 16; Pulse Ox 100% on R/A; hb 09:18 Body Mass Index 25.71 (55.79 kg, 147.32 cm) hb 09:18 Pain Scale: Adult hb MDM: 09:10 Patient medically screened. ms3 09:49 Differential diagnosis: upper respiratory infection, viral syndrome Strep versus COVID ms3 versus influenza. 10:33 Data reviewed: vital signs, nurses notes, and as a result, I will discharge patient. I ms3 considered the following discharge prescriptions or medication management in the emergency department Medications were administered in the Emergency Department. See MAR. Care significantly affected by the following chronic conditions: Hypertension. Counseling: I had a detailed discussion with the patient and/or guardian regarding the historical points, exam findings, and any diagnostic results supporting the discharge/admit diagnosis, lab results, the need for outpatient follow up, to return to the emergency department if symptoms worsen or persist or if there are any questions or concerns that arise at home. Special discussion: I discussed with the patient/guardian in detail that at this point there is no indication for admission to the hospital. It is understood, however, that if the symptoms persist or worsen the patient needs to return immediately for re-evaluation. ED course: Discussed negative flu, COVID, strep with patient. Patient to follow-up with primary care physician 2 to 3 days. Patient understands and agrees with plan. All questions were answered. Return precautions discussed include worsening symptoms, or any other concerns. 08/21 08:55 Order name: Strep [facility] 08/21 08:55 Order name: Flu; Complete Time: 10:29 [facility] 08/21 08:55 Order name: SARS RAPID; Complete Time: 10:29 [facility] 08/21 10:31 Order name: Throat Culture EDMS Administered Medications: 10:06 Drug: Ibuprofen PO 600 mg PO once Route: PO; 10:47 Follow up: Response: No adverse reaction hb Disposition Summary: 08/22/23 10:30 Discharge Ordered Notes: Location: Home ms3 Condition: Stable ms3 Diagnosis - Acute upper respiratory infection, unspecified ms3 - Headache ms3 - Pain in throat ms3 Followup: ms3 - With: Marlon Alicia DO - When: 2 - 3 days - Reason: Re-evaluation by your physician Discharge Instructions: - Discharge Summary Sheet ms3 - Sore Throat ms3 - Upper Respiratory Infection, Adult ms3 - Cool Mist Vaporizer ms3 Forms: - Work release form hb - Medication Reconciliation Form ms3 - Thank You Letter ms3 - Antibiotic Education ms3 - Prescription Opioid Use ms3 - Patient Portal Instructions ms3 - Leadership Thank You Letter ms3 Prescriptions: - Claritin 10 mg Oral Tablet - take 1 tablet ORAL route once daily As needed; 30 tablet; Refills: 0, Product ms3 Selection Permitted - Tessalon Perles 100 mg Oral Capsule - take 1 capsule ORAL route every 8 hours As needed; 15 capsule; Refills: 0, ms3 Product Selection Permitted Signatures: Dispatcher [employer] Jeremiah Valentino MD MD cha Baxter, Heather, HUMBERTO RN Alex Lilly DO DO ms3 Corrections: (The following items were deleted from the chart) 09:50 09:46 28-year-old female with. ms3 ms3
[2023-08-22 11:00] VITALS: BP 128/88; TEMP 99.1; O2SAT 100
== END ==
LOC: ER 08:46
DX: J06.9 Acute upper respiratory infection, unspecified (principal); R51.9 Headache, unspecified; Z11.52 Encounter for screening for COVID-19
CPT/HCPCS: 36415; 87070; 87081; 87804; 87811; 99284

== ENCOUNTER 2023-10-29 12:58 | Emergency (ER) | payer BC ==
--- NOTE | 2023-10-29 14:00 | RAD REPORT ---
EXAM DESCRIPTION: RAD - Foot Left 3 View - 10/29/2023 1:41 pm CLINICAL HISTORY: Left Foot pain FINDINGS: No fracture or dislocation is seen.
--- NOTE | 2023-10-29 14:09 | ER ---
Nurse's Notes [facility] Name: Crissy Bazzi Age: 28 yrs Sex: Female : 1995 Arrival Date: 10/29/2023 Time: 12:58 Bed 9 Private MD: Diagnosis: Contusion of left lesser toe(s) without damage to nail, initial encounter Presentation: 10/28 13:14 Chief complaint: Patient states: she went to kick a ball three days ago, and kicked ap3 another persons foot instead. patient complains of pain to her left pinky toe. Coronavirus screen: At this time, the client does not indicate any symptoms associated with coronavirus-19. Ebola Screen: No symptoms or risks identified at this time. Initial Sepsis Screen: Does the patient meet any 2 criteria? No. Patient's initial sepsis screen is negative. Does the patient have a suspected source of infection? No. Patient's initial sepsis screen is negative. Risk Assessment: Do you want to hurt yourself or someone else? Patient reports no desire to harm self or others. Onset of symptoms was October 26, 2023. 13:14 Method Of Arrival: Ambulatory ap3 13:14 Acuity: FALL[place] 4 ap3 Triage Assessment: 13:15 General: Appears in no apparent distress. Behavior is calm, cooperative, appropriate ap3 for age. Pain: Complains of pain in left fifth toe Pain began 2-3 days ago. Neuro: Level of Consciousness is awake, alert, obeys commands, Oriented to person, place, time, situation, Speech is normal. Cardiovascular: Patient's skin is warm and dry. Respiratory: Airway is patent Respiratory effort is even, unlabored, Respiratory pattern is regular, symmetrical. 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 - Infectious Disease History:: Denies. - Social history:: Smoking status: Reported history of juuling and/or vaping. Screenin:16 [facility] ED Fall Risk Assessment (Adult) History of falling in the last 3 months, ap3 including since admission No falls in past 3 months (0 pts) Confusion or Disorientation No (0 pts) Intoxicated or Sedated No (0 pts) Impaired Gait No (0 pts) Mobility Assist Device Used No (0 pt) Altered Elimination No (0 pt) Score/Fall Risk Level 0 - 2 = Low Risk Oriented to surroundings, Maintained a safe environment, Educated pt \T\ family on fall prevention, incl call for assistance when getting out of bed, Assessed \T\ reinforced patient's understanding of fall precautions, Provided non-skid footwear, Hourly rounding (assess needs \T\ fall precautionary measures) done, Used ambulatory aids as needed (educated on \T\ assisted with), Used gait belt as appropriate. Abuse screen: Denies threats or abuse. Nutritional screening: No deficits noted. Tuberculosis screening: No symptoms or risk factors identified. Vital Signs: 13:14 BP 147 / 106; Pulse 70; Resp 18; Temp 98.1; Weight 52.62 kg; Height 4 ft. 10 in. ; ap3 13:14 Body Mass Index 24.24 (52.62 kg, 147.32 cm) ap3 ED Course: 13:01 Patient arrived in ED. im 13:01 Rayna Edwards FNP-C is [facility]. kb 13:01 Karthik Sorensen MD is Attending Physician. kb 13:14 Zenobia Todd, HUMBERTO is Primary Nurse. ap3 13:15 Triage completed. ap3 13:16 Arm band placed on right wrist. ap3 13:16 Patient has correct armband on for positive identification. Bed in low position. Call ap3 light in reach. Pulse ox on. NIBP on. 13:17 Provided Education on: call light education. ap3 13:40 Foot Left 3 View XRAY In Process Unspecified. EDMS 14:17 No provider procedures requiring assistance completed. Patient did not have IV access ap3 during this emergency room visit. Administered Medications: No medications were administered Medication: 14:17 VIS not applicable for this client. ap3 Outcome: 14:08 Discharge ordered by . kb 14:17 Discharged to home ambulatory, ap3 14:17 Condition: good 14:17 Discharge instructions given to patient, Instructed on discharge instructions, follow up and referral plans. Demonstrated understanding of instructions, follow-up care, 14:17 Patient left the ED. ap3 Signatures: Dispatcher [employer] EDMA Jerry, Rayna, CORRESPONDENCE REVIEW CLERK-C CORRESPONDENCE REVIEW CLERK-Ckb Zenobia Todd, RN RN ap3 Trudy Quezada
--- NOTE | 2023-10-29 14:09 | EDPHYS ---
Physician Documentation [facility] Name: Crissy Bazzi Age: 28 yrs Sex: Female : 1995 Arrival Date: 10/29/2023 Time: 12:58 Bed 9 Private MD: ED Physician Karthik Sorensen HPI: 10/28 13:49 This 28 yrs old Black Female presents to ER via Ambulatory with complaints of Toe kb Injury. 13:49 Pt is a 28 year old female who presents for pain to fifth digit on left toe. Reports kb she was "playing around a few days ago and hit it on something." States she came to find out if it was broken or just bruised. . 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 - Infectious Disease History:: Denies. - Social history:: Smoking status: Reported history of juuling and/or vaping. ROS: 13:46 Constitutional: As per HPI kb Exam: 13:46 Constitutional: This is a well developed, well nourished patient who is awake, alert, kb and in no acute distress. Head/Face: Normocephalic, atraumatic. ENT: Moist Mucous membranes Cardiovascular: Regular rate Respiratory: Respirations even and unlabored. No increased work of breathing. Talking in full sentences Skin: Warm, dry with normal turgor. Normal color. Neuro: Awake and alert, GCS 15, oriented to person, place, time, and situation. Moves all extremities. Normal gait. 13:46 Musculoskeletal/extremity: Extremities: grossly normal except: noted in the left fifth toe: decreased ROM, ecchymosis, pain, swelling, tenderness, ROM: limited active range of motion due to pain, Circulation is intact in all extremities. Sensation intact. Weight bearing: able to fully bear weight, Vital Signs: 13:14 BP 147 / 106; Pulse 70; Resp 18; Temp 98.1; Weight 52.62 kg; Height 4 ft. 10 in. ; ap3 13:14 Body Mass Index 24.24 (52.62 kg, 147.32 cm) ap3 MDM: 13:01 Patient medically screened. kb 14:06 Differential diagnosis: contusion, fracture, sprain. Data reviewed: vital signs, nurses kb notes. Counseling: I had a detailed discussion with the patient and/or guardian regarding the historical points, exam findings, and any diagnostic results supporting the discharge/admit diagnosis, radiology results, the need for outpatient follow up, a family practitioner, to return to the emergency department if symptoms worsen or persist or if there are any questions or concerns that arise at home. 10/28 13:22 Order name: Foot Left 3 View XRAY; Complete Time: 14:06 kb Administered Medications: No medications were administered Disposition: 14:37 Co-signature as Attending Physician, Karthik Sorensen MD I reviewed the patient's care rn provided by the Advanced Practice Provider and agree with the diagnosis and treatment plan. Disposition Summary: 10/29/23 14:08 Discharge Ordered Notes: Location: Home kb Condition: Stable kb Diagnosis - Contusion of left lesser toe(s) without damage to nail, initial encounter kb Followup: kb - With: Emergency Department - When: As needed - Reason: Worsening of condition Followup: kb - With: Private Physician - When: 2 - 3 days - Reason: Recheck today's complaints, Continuance of care, Re-evaluation by your physician Discharge Instructions: - Discharge Summary Sheet kb - Foot Contusion, [id number] kb Forms: - Medication Reconciliation Form kb - Antibiotic Education kb - Prescription Opioid Use kb - Patient Portal Instructions kb - Leadership Thank You Letter kb - Work release form ap3 Signatures: Dispatcher [employer] Rayna Edmonds, STORE ADMINISTRATOR-C JERAMY-Karthik Johnson MD MD rn Prokisch, Amanda, RN RN ap3
[2023-10-29 14:36] VITALS: BP 147/106; TEMP 98.1
== END 2023-10-29 14:17 | disposition home or self-care (01) ==
LOC: ER 12:58
DX: S90.122A Contusion of left lesser toe(s) without damage to nail, initial encounter (principal)

== ENCOUNTER 2024-03-19 09:30 | Inpatient (IN) | payer BC, OTHER, SELFPAY ==
[2024-03-19 10:53] LABS: Specific Gravity 1.013 (1.005-1.030); Sqamous Epithelial <5 /HPF (None Seen); Urine Bacteria None Seen /HPF (<20); Urine Bilirubin NEGATIVE (Negative); Urine Blood 2+ (Negative); Urine Clarity Turbid (Clear); Urine Color Colorless (Yellow); Urine Culture Reflex Order NOT NEEDED; Urine Glucose NEGATIVE (Negative); Urine Ketones NEGATIVE (Negative); Urine Microscopic Reflex YN ORDER UMIC; Urine Nitrite NEGATIVE (Negative); Urine Protein NEGATIVE (Negative); Urine RBC <5 /HPF (None Seen); Urine Urobilinogen Normal (Normal); Urine WBC <5 /HPF (<5); Urine pH 6.5 (5.0-7.0)
[2024-03-19] MEDS ORDERED: CLINDAMYCIN 900MG/D5W 900 MG/50 ML IVPB IV ONE (10:54)
[2024-03-19] MEDS ORDERED: ONDANSETRON 4 MG/2 ML VIAL ONE ×2 (10:54→15:17)
[2024-03-19] MEDS ORDERED: MORPHINE 4 MG/ML SYR ONE (10:54)
[2024-03-19] MEDS ORDERED: NA CHLORIDE 0.9% 1,000 ML ONE (10:55)
[2024-03-19] MEDS ORDERED: CEFAZOLIN SODIUM 2 GM/VIAL ONE (10:55)
[2024-03-19] MEDS ORDERED: NA CHLORIDE 0.9% 100 ML ONE (10:55)
[2024-03-19 10:57] LABS: Absolute Basophils 0.1 K/uL (0-0.5); Absolute Eosinophils 0.1 K/uL (0-0.5); Absolute Lymphocytes (CBC) 1.8 K/uL (0.7-4.9); Absolute Monocytes 0.6 K/uL (0.1-1.3); Basophils % 0.6 % (0-1.3); Hematocrit 38.5 % (36.0-45.0); Hemoglobin 12.8 g/dL (12.0-15.0); Lymphocytes % 20.9 % (15.3-44.8); MCHC 33.4 g/dL (32.0-36.0); MCV 89.9 fL (80-100); MPV 9.4 fL (7.6-11.3); Monocytes % 7.2 % (3.3-12.3); Neutrophils % 70.3 % (41.7-73.7); Platelets 176 thou/uL (152-406); RBC Red Blood Cell Count 4.28 M/uL (3.86-4.86); Red Cell Distribution Width 12.6 % (12.1-15.2)
[2024-03-19 11:16] LABS: Albumin 3.5 g/dL (3.4-5.0); Alkaline Phosphatase 65 U/L (45-117); Anion Gap 7.7 mEq/L (5.0-15.0); BUN Blood Urea Nitrogen 11 mg/dL (7-18); Bicarbonate 26 mEq/L (21-32); Globulin 3.4 g/dL (2.3-3.5); Glomerular Filtration Rate 115 ml/min (=/>90); Glucose Level 100 mg/dL (74-106); Potassium 3.7 mEq/L (3.5-5.1); Protein, Total 6.9 g/dL (6.4-8.2); Sodium Level 139 mEq/L (136-145)
[2024-03-19 11:17] LABS: ALT/SGPT < 14 U/L (13-56); AST/SGOT < 10 U/L (15-37); Bilirubin Total < 0.2 mg/dL (0.2-1.0)
--- NOTE | 2024-03-19 12:17 | RAD REPORT ---
EXAM: Extremity Nonvascular Limited HISTORY: Pain;Swelling RIGHT COMPARISON: None TECHNIQUE: Sonographic grayscale and color flow imaging of the right breast periareolar region includ ing the region of interest as described by the patient. FINDINGS: Pronounced subcutaneous and deeper soft tissue edema in the periareolar region. Metallic piercing is present. In the subareolar soft tissues, a heterogeneous, poorly circumscribed, region of isochoric heterogeneous content is present with surrounding hypervascularity, measuring 2.2 x 1.6 x 0.9 cm. No other discrete fluid collections or masses. IMPRESSION: Subareolar poorly defined early abscess or phlegmon, measuring up to 2.2 cm, with no drainable compon ent at this time.
--- NOTE | 2024-03-19 12:42 | EDPHYS ---
Physician Documentation [facility] Name: Crissy Bazzi Age: 29 yrs Sex: Female : 1995 Arrival Date: 03/19/2024 Time: 09:30 Bed 12 Private MD: ED Physician Jeremiah Baldwin HPI: 03/19 12:28 This 29 yrs old Black Female presents to ER via Ambulatory with complaints of Breast mgaali Problem. 12:28 The patient presents with an abscess of the right nipple and right breast, The patient magali presents with cellulitis of the right nipple and right breast. Description: The affected area is moderate sized, draining, erythematous. Onset: The symptoms/episode began/occurred 5 day(s) ago. Possible cause(s): fb in breast. Severity of symptoms: At their worst the symptoms were moderate, in the emergency department the symptoms are actually worse. The patient has not experienced similar symptoms in the past. Historical: - Allergies: 09:49 No Known Allergies; ap3 - Home Meds: 09:49 None [Active]; ap3 - PMHx: 09:49 None; ap3 - Infectious Disease History:: Denies. - Social history:: Smoking status: Patient reports the use of cigarette tobacco products, Reported history of juuling and/or vaping. - Family history:: not pertinent. ROS: 12:28 Constitutional: Negative for fever, chills, and weight loss, Eyes: Negative for injury, magali pain, redness, and discharge, ENT: Negative for injury, pain, and discharge, Neck: Negative for injury, pain, and swelling, Cardiovascular: Negative for chest pain, palpitations, and edema, Respiratory: Negative for shortness of breath, cough, wheezing, and pleuritic chest pain, Abdomen/GI: Negative for abdominal pain, nausea, vomiting, diarrhea, and constipation, Back: Negative for injury and pain, : Negative for injury, bleeding, discharge, and swelling, MS/Extremity: Negative for injury and deformity, Neuro: Negative for headache, weakness, numbness, tingling, and seizure, Psych: Negative for depression, anxiety, suicide ideation, homicidal ideation, and hallucinations, Allergy/Immunology: Negative for hives, rash, and allergies, Endocrine: Negative for neck swelling, polydipsia, polyuria, polyphagia, and marked weight changes, Hematologic/Lymphatic: Negative for swollen nodes, abnormal bleeding, and unusual bruising, 12:28 Skin: Positive for cellulitis, erythema, swelling, of the right breast, Exam: 12:28 Constitutional: This is a well developed, well nourished patient who is awake, alert, magali and in no acute distress. Head/Face: Normocephalic, atraumatic. Eyes: Pupils equal round and reactive to light, extra-ocular motions intact. Lids and lashes normal. Conjunctiva and sclera are non-icteric and not injected. Cornea within normal limits. Periorbital areas with no swelling, redness, or edema. ENT: Nares patent. No nasal discharge, no septal abnormalities noted. Tympanic membranes are normal and external auditory canals are clear. Oropharynx with no redness, swelling, or masses, exudates, or evidence of obstruction, uvula midline. Mucous membranes moist. Neck: Trachea midline, no thyromegaly or masses palpated, and no cervical lymphadenopathy. Supple, full range of motion without nuchal rigidity, or vertebral point tenderness. No Meningismus. Chest/axilla: Normal chest wall appearance and motion. Nontender with no deformity. No lesions are appreciated. Cardiovascular: Regular rate and rhythm with a normal S1 and S2. No gallops, murmurs, or rubs. Normal PMI, no JVD. No pulse deficits. Respiratory: Lungs have equal breath sounds bilaterally, clear to auscultation and percussion. No rales, rhonchi or wheezes noted. No increased work of breathing, no retractions or nasal flaring. Abdomen/GI: Soft, non-tender, with normal bowel sounds. No distension or tympany. No guarding or rebound. No evidence of tenderness throughout. Back: No spinal tenderness. No costovertebral tenderness. Full range of motion. Vital Signs: 09:48 BP 136 / 109; Pulse 80; Resp 17; Temp 98.7; Pulse Ox 100% ; Weight 53.07 kg; Height 4 ap3 ft. 10 in. ; Pain 10/10; 13:18 BP 128 / 79; Pulse 72; Resp 18; Pulse Ox 98% on R/A; ph 15:00 BP 118 / 72; Pulse 76; Resp 18; Temp 97.9; Pulse Ox 98% on R/A; ph 09:48 Body Mass Index 24.45 (53.07 kg, 147.32 cm) ap3 09:48 Pain Scale: Adult ap3 MDM: 09:38 Patient medically screened. [facility] 03/19 10:07 Order name: CBC with Diff; Complete Time: 11:52 magali 03/19 10:07 Order name: Comprehensive Metabolic Panel; Complete Time: 11:52 magali 03/19 10:07 Order name: Urinalysis w/ reflexes; Complete Time: 11:52 magali 03/19 10:07 Order name: PREGU; Complete Time: 11:52 magali 03/19 13:38 Order name: Urinalysis w/ reflexes EDMS 03/19 13:38 Order name: Basic Metabolic Panel EDMS 03/19 13:38 Order name: Basic Metabolic Panel EDMS 03/19 13:38 Order name: Basic Metabolic Panel EDMS 03/19 13:38 Order name: Basic Metabolic Panel EDMS 03/19 13:38 Order name: Basic Metabolic Panel EDMS 03/19 13:38 Order name: Basic Metabolic Panel EDMS 03/19 13:38 Order name: CBC with Automated Diff EDMS 03/19 13:38 Order name: CBC with Automated Diff EDMS 03/19 13:38 Order name: CBC with Automated Diff EDMS 03/19 13:38 Order name: CBC with Automated Diff EDMS 03/19 13:38 Order name: CBC with Automated Diff EDMS 03/19 13:38 Order name: CBC with Automated Diff EDMS 03/19 13:38 Order name: Magnesium EDMS 03/19 13:38 Order name: Magnesium EDMS 03/19 13:38 Order name: Magnesium EDMS 03/19 13:38 Order name: Magnesium EDMS 03/19 13:38 Order name: Magnesium EDMS 03/19 13:38 Order name: Magnesium EDMS 03/19 13:38 Order name: Phosphorus EDMS 03/19 13:38 Order name: Phosphorus EDMS 03/19 13:38 Order name: Phosphorus EDMS 03/19 13:38 Order name: Phosphorus EDMS 03/19 13:38 Order name: Phosphorus EDMS 03/19 13:38 Order name: Phosphorus EDMS 03/19 11:53 Order name: US Extrmty Nonvasular Limited: right breast; Complete Time: 12:23 magali 03/19 13:38 Order name: CONS Physician Consult EDMS Administered Medications: 10:55 Drug: NS 0.9% IV 1000 ml IV at 1 bolus Per protocol; 1000 mL bolus Route: IV; Rate: 1 kb3 bolus; Site: left antecubital; 12:25 Follow up: Response: No adverse reaction; IV Status: Completed infusion; IV Intake: ph 1000ml 10:56 Drug: morphine IVP or IV 4 mg IVP once over 4 mins Route: IVP; Infused Over: 4 mins; kb3 Site: left antecubital; 11:08 Follow up: Response: No adverse reaction; Pain is decreased kb3 10:56 Drug: Ondansetron IVP 4 mg IVP once; over 2 minutes Route: IVP; Site: left antecubital; kb3 12:24 Follow up: Response: No adverse reaction ph 11:00 Drug: Clindamycin IVPB 900 mg IVPB once over 30 mins; (mix in 50 mL) Route: IVPB; kb3 Infused Over: 30 mins; Site: left antecubital; 11:23 Follow up: Response: No adverse reaction; IV Status: Completed infusion; IV Intake: [id number] 11:23 Drug: ceFAZolin IVPB 2 grams IVPB once over 30 mins; (mix in 100 mL NS) Route: IVPB; cm10 Infused Over: 30 mins; Site: left antecubital; 12:00 Follow up: Response: No adverse reaction; IV Status: Completed infusion ph Disposition Summary: 03/19/24 12:42 Hospitalization Ordered Notes: Hospitalization Status: Inpatient Admission magali Provider: Bryant Childs cha [facility] magali Condition: Stable magali Problem: new magali Symptoms: have improved magali Bed/Room Type: Standard magali Room Assignment: 225(03/19/24 14:58) mb4 Diagnosis - Abscess of the breast and nipple magali Forms: - Medication Reconciliation Form magali - SBAR form amgali - Leadership Thank You Letter magali Signatures: Dispatcher [employer] Jeremiah Valentino MD MD cha Prokisch, Amanda RN RN ap3 Sol Rodriguez mb4 Gracie Brandon RN RN kb3 Martina Erickson RN RN cm10 Litzy Pate RN ph Corrections: (The following items were deleted from the chart) 10:07 10:07 CBC+H.LAB.BRZ ordered. EDMS EDMS 10:07 10:07 COMPREHENSIVE METABOLIC PANEL+C.LAB.BRZ ordered. EDMS EDMS 10:07 10:07 Urinalysis+U.LAB.BRZ ordered. EDMS EDMS 10:07 10:07 Test, Urine+UC.LAB.BRZ ordered. EDMS EDMS 11:53 11:53 Extrmty Nonvasular Limited+US.RAD.BRZ ordered. EDMS EDMS 14:58 12:42 magali mb4
--- NOTE | 2024-03-19 12:42 | ER ---
Nurse's Notes [facility] Name: Crissy Bazzi Age: 29 yrs Sex: Female : 1995 Arrival Date: 03/19/2024 Time: 09:30 Bed 12 Private MD: Diagnosis: Abscess of the breast and nipple Presentation: 03/19 09:48 Chief complaint: Patient states: she is having right nipple pain that started ap3 yesterday. Coronavirus screen: At this time, the client does not indicate any symptoms associated with coronavirus-19. Ebola Screen: No symptoms or risks identified at this time. Initial Sepsis Screen: Does the patient meet any 2 criteria? No. Patient's initial sepsis screen is negative. Does the patient have a suspected source of infection? No. Patient's initial sepsis screen is negative. Risk Assessment: Do you want to hurt yourself or someone else? Patient reports no desire to harm self or others. Onset of symptoms was March 18, 2024. 09:48 Method Of Arrival: Ambulatory ap3 09:48 Acuity: [place] 4 ap3 Triage Assessment: 09:50 General: Appears uncomfortable, Behavior is calm, cooperative, appropriate for age. ap3 Pain: Complains of pain in right nipple. Neuro: Level of Consciousness is awake, alert, obeys commands, Oriented to person, place, time, situation, Appropriate for age. Cardiovascular: Patient's skin is warm and dry. Respiratory: Airway is patent Respiratory effort is even, unlabored, Respiratory pattern is regular, symmetrical. Historical: - Allergies: 09:49 No Known Allergies; ap3 - Home Meds: 09:49 None [Active]; ap3 - PMHx: 09:49 None; ap3 - Infectious Disease History:: Denies. - Social history:: Smoking status: Patient reports the use of cigarette tobacco products, Reported history of juuling and/or vaping. - Family history:: not pertinent. Screenin:50 [facility] ED Fall Risk Assessment (Adult) History of falling in the last 3 months, ap3 including since admission No falls in past 3 months (0 pts) Confusion or Disorientation No (0 pts) Intoxicated or Sedated No (0 pts) Impaired Gait No (0 pts) Mobility Assist Device Used No (0 pt) Altered Elimination No (0 pt) Score/Fall Risk Level 0 - 2 = Low Risk Oriented to surroundings, Maintained a safe environment, Educated pt \\T\\ family on fall prevention, incl call for assistance when getting out of bed, Assessed \\T\\ reinforced patient's understanding of fall precautions, Hourly rounding (assess needs \\T\\ fall precautionary measures) done, Used ambulatory aids as needed (educated on \\T\\ assisted with), Used gait belt as appropriate. Abuse screen: Denies threats or abuse. Nutritional screening: No deficits noted. Tuberculosis screening: No symptoms or risk factors identified. Assessment: 13:17 General: Appears in no apparent distress. Behavior is calm, cooperative. Pain: ph Complains of pain in right nipple. Neuro: Level of Consciousness is awake, alert, obeys commands, Oriented to person, place, time, situation. Cardiovascular: Capillary refill < 3 seconds in bilateral fingers Patient's skin is warm and dry. Respiratory: Airway is patent Respiratory effort is even, unlabored. Derm: Skin is pink, warm \\T\\ dry. 15:06 Reassessment:. ph Vital Signs: 09:48 BP 136 / 109; Pulse 80; Resp 17; Temp 98.7; Pulse Ox 100% ; Weight 53.07 kg; Height 4 ap3 ft. 10 in. ; Pain 10/10; 13:18 BP 128 / 79; Pulse 72; Resp 18; Pulse Ox 98% on R/A; ph 15:00 BP 118 / 72; Pulse 76; Resp 18; Temp 97.9; Pulse Ox 98% on R/A; ph 09:48 Body Mass Index 24.45 (53.07 kg, 147.32 cm) ap3 09:48 Pain Scale: Adult ap3 ED Course: 09:31 Patient arrived in ED. im 09:38 Jeremiah Baldwin MD is Attending Physician. magali 09:49 Triage completed. ap3 09:50 Arm band placed on left wrist. ap3 10:44 PREGU Sent. kb3 10:44 Urinalysis w/ reflexes Sent. kb3 10:53 Initial lab(s) drawn, by me, sent to lab. Inserted saline lock: 22 gauge in left em1 antecubital area, using aseptic technique. Blood collected. Flushed with 10 mL NS. 10:53 Comprehensive Metabolic Panel Sent. em1 10:53 CBC with Diff Sent. em1 12:12 US Extrmty Nonvasular Limited: right breast In Process Unspecified. EDMS 12:23 Litzy Pate, RN is Primary Nurse. ph 12:25 Patient has correct armband on for positive identification. Bed in low position. Call ph light in reach. Side rails up X 1. Pulse ox on. NIBP on. Door closed. Noise minimized. Warm blanket given. 12:41 Bryant Childs MD is Hospitalizing Provider. magali 13:40 1340 CM met with and her male friend at the bedside in the ED exam room. ane Patient identified by name and . Demographic sheet confirmed and changes sent to appropriate personnel. Patient states she lives with someone and prefers not to say who, in a 2nd floor apartment. She reports that prior to admission, she performs ADLs independently and without physical limitations. No HH,no home oxygen, no assistive devices, or medical services. Patient does not have a PCP at this time. She reports she has an MPOA in place and states " It's my brother." Patient's preferred discharge plan is to return home upon discharge and states her family will transport her home. CM team will continue to follow and coordinate care during this hospital stay. 15:56 No provider procedures requiring assistance completed. Patient admitted, IV remains in ph place. Administered Medications: 10:55 Drug: NS 0.9% IV 1000 ml IV at 1 bolus Per protocol; 1000 mL bolus Route: IV; Rate: 1 kb3 bolus; Site: left antecubital; 12:25 Follow up: Response: No adverse reaction; IV Status: Completed infusion; IV Intake: ph 1000ml 10:56 Drug: morphine IVP or IV 4 mg IVP once over 4 mins Route: IVP; Infused Over: 4 mins; kb3 Site: left antecubital; 11:08 Follow up: Response: No adverse reaction; Pain is decreased kb3 10:56 Drug: Ondansetron IVP 4 mg IVP once; over 2 minutes Route: IVP; Site: left antecubital; kb3 12:24 Follow up: Response: No adverse reaction ph 11:00 Drug: Clindamycin IVPB 900 mg IVPB once over 30 mins; (mix in 50 mL) Route: IVPB; kb3 Infused Over: 30 mins; Site: left antecubital; 11:23 Follow up: Response: No adverse reaction; IV Status: Completed infusion; IV Intake: [id number] 11:23 Drug: ceFAZolin IVPB 2 grams IVPB once over 30 mins; (mix in 100 mL NS) Route: IVPB; cm10 Infused Over: 30 mins; Site: left antecubital; 12:00 Follow up: Response: No adverse reaction; IV Status: Completed infusion ph Medication: 12:25 VIS not applicable for this client. ph Intake: 11:23 IV: 50ml; Total: 50ml. cm10 12:25 IV: 1000ml; Total: 1050ml. ph Outcome: 12:42 Decision to Hospitalize by Provider. magali 15:56 Patient left the ED. ph 15:56 Condition: good ph 15:56 Admitted to Med/surg accompanied by nurse, via wheelchair, with chart, ph 15:56 Instructed on the need for admit, Signatures: Dispatcher [employer] EDMS Jeremiah Baldwin MD MD cha Martinez, Eric em1 Litzy Pate RN RN Zenobia Todd RN RN ap3 Gracie Brandon RN RN travis3 Trudy Quezada Clarissa RN RN cm10 Monserrat La RN HUMBERTO abel Corrections: (The following items were deleted from the chart) 17:46 15:56 Discharged to home ambulatory, with family, ph ph 17:46 15:56 Discharge instructions given to family, Instructed on discharge instructions, ph follow up and referral plans. medication usage, Demonstrated understanding of instructions, follow-up care, medications, Prescriptions given X 1, ph 17:48 15:56 Patient did not have IV access during this emergency room visit. ph ph
--- NOTE | 2024-03-19 13:32 | P.HP ---
Certification for Inpatient Patient admitted to: Inpatient With expected LOS: <2 Midnights Practitioner: I am a practitioner with admitting privileges, knowledge of patient current condition, hospital course, and medical plan of care. Services: Services provided to patient in accordance with Admission requirements found in Title 42 Section 412.3 of the Code of Federal Regulations Patient History Date of Service: 03/19/24 Reason for admission: right breast abscess History of Present Illness: Crissy Bazzi is a 29 year old female with no significant Pmhx who presents to the ED with discomfort to the right breast. She is s/p bilateral nipple/areolar piercing one year ago. She reports coming to the ED when the left breast started to hurt and present with an infection, she was discharged with bactrim on Wednesday 03/14 and the infection is now cleared up. Today she presents with the right breast abscess while on bactrim. Laboratory evaluation unremarkable, hemodynamically stable. Ultrasound of right breast reports " Subareolar poorly defined early abscess or phlegmon, measuring up to 2.2 cm, with no drainable component at this time." Crissy will be admitted to hospitalist service for further evaluation and treatment of right breast abscess. General surgery consulted. Allergies No Known Allergies Allergy (Unverified 03/19/24 13:07) Home Medications: NK [No Home Meds] 03/19/24 - Past Medical/Surgical History Past Medical History: Patient denies medical history Past Surgical History: Patient denies surgical history - Family History Family History: Reviewed- Non-Contributory - Social History Smoking Status: Current some day smoker (A few cigarettes daily and marijuana occasionally) Alcohol use: Yes CD- Drugs: Yes Caffeine use: Yes Review of Systems Integumentary: Other (Right breast abscess) Physical Examination - Physical Exam General: Alert, In no apparent distress, Oriented x3 HEENT: Atraumatic, Normocephalic, PERRLA Neck: Supple, JVD not distended Respiratory: Clear to auscultation bilaterally, Normal air movement Cardiovascular: No edema, Normal pulses, Regular rate/rhythm, Normal S1 S2 Capillary refill: <2 Seconds Gastrointestinal: Normal bowel sounds, Soft and benign Musculoskeletal: No clubbing Integumentary: Other (Right breast abscess) Neurological: Normal speech, Normal tone - Studies Laboratory Data (last 24 hrs) 03/19/24 03/19/24 10:48 10:48 WBC 8.50 Hgb 12.8 Hct 38.5 Plt Count 176 Sodium 139 Potassium 3.7 BUN 11 Creatinine 0.73 Glucose 100 Total Bilirubin < 0.2 L AST < 10 L ALT < 14 Alkaline Phosphatase 65 Assessment and Plan - Plan Assessment and plan Acute right breast abscess Status post left breast infection -Ultrasound of right breast reports " Subareolar poorly defined early abscess or phlegmon, measuring up to 2.2 cm, with no drainable component at this time." -She reports taking Bactrim with her left breast infection this week, right breast abscess developed while on Bactrim -Nipple/areolar piercing one year ago -Clindamycin and cefazolin given in the ED -Cefepime and Vancomycin on the floor -Pain control -Consulted Dr. Clifford Acute Hematuria -UA showing 2+ blood -Follow up outpatient DVT PPx SCDs Full code LOS 2 days Discharge Plan: Home Plan to discharge in: 48 Hours - Advance Directives Does patient have a Living Will: No Does patient have a Durable POA for Healthcare: No
[2024-03-19] MEDS ORDERED: MORPHINE 2 MG/ML SYR ONE (15:17)
[2024-03-19] MEDS: MORPHINE 2 MG/ML SYR IV PRN ×2 (15:27→19:29)
[2024-03-19] MEDS: NA CHLORIDE 0.9% 1,000 ML IV SCH (16:18)
[2024-03-19 16:48] VITALS: BMI 24.4
[2024-03-19] MEDS: HYDROCODONE/APAP 7.5/325 MG TAB PO PRN (17:34)
--- NOTE | 2024-03-19 17:55 | P.CNS ---
Date of Consult: 03/19/24 PC: I was asked to see this 29-year-old female in regards to a possible right breast abscess. HPC: Patient has been in the hospital before, has bilateral nipple piercings, the occasion get infected and very very tender, this will reduce when it is swollen up and is causing her considerable amount of pain. PSHx: NAD PMHx: Negative, nulliparous Social Hx: No known allergies Sys R: Otherwise healthy young lady O/E: Awake alert vital signs are stable, afebrile HEENT: 3 nasal piercings Chest: Chest movement equal bilaterally Breast: Has considerable this swelling of the right breast. Bar has been removed from the right nipple. No drainage of any fluid seen. On palpation the breast is firm and there are no areas of fluctuance or tenderness detected at the moment. Abd: Bellybutton ring [place]: Intact Data: White cell count normal, ultrasound is negative for abscess formation at this time Impression: Has of inflammation of her right breast consistent with a mastitis most likely from her bellybutton ring. Plan: Patient has been started on antibiotics, I will reassess her again in the a.m. it is most likely at some point this is going to form an abscess. It has not done so at this time we will follow along with you.
[2024-03-19] MEDS: VANCOMYCIN 1 GM in NA CHLORIDE 0.9% 250 ML IVPB SCH (19:30)
[2024-03-19] MEDS: ONDANSETRON 4 MG/2 ML VIAL IV PRN (20:58)
[2024-03-19] MEDS: CEFEPIME 1 GM in NA CHLORIDE 0.9% 100 ML IV SCH (20:58)
[2024-03-19] MEDS ORDERED: PIPER TAZO 3.375 GM in NA CHLORIDE 0.9% 100 ML IV SCH (21:00)
[2024-03-20 06:34] LABS: Absolute Eosinophils 0.1 K/uL (0-0.5); Absolute Monocytes 0.3 K/uL (0.1-1.3); Absolute Neutrophil 4.6 K/uL (1.8-8.0); Basophils % 0.4 % (0-1.3); Eosinophils % 1.7 % (0-4.4); Hematocrit 35.4 % (36.0-45.0); Hemoglobin 11.7 g/dL (12.0-15.0); Lymphocytes % 27.9 % (15.3-44.8); MCH 29.8 pg (27.0-35.0); MCV 90.1 fL (80-100); MPV 9.5 fL (7.6-11.3); Monocytes % 4.9 % (3.3-12.3); Neutrophils % 65.1 % (41.7-73.7); Platelets 168 thou/uL (152-406); RBC Red Blood Cell Count 3.93 M/uL (3.86-4.86); Red Cell Distribution Width 12.6 % (12.1-15.2)
[2024-03-20 06:44] LABS: Anion Gap 7.3 mEq/L (5.0-15.0); Magnesium 1.7 mg/dL (1.6-2.4); Phosphorus 3.3 mg/dL (2.5-4.9); Potassium 3.3 mEq/L (3.5-5.1)
[2024-03-20] MEDS: MAGNESIUM SULFATE 1 gm IVPB 1 GM/100 ML BAG IV SCH (08:51)
[2024-03-20] MEDS: POTASSIUM CL SA 10 MEQ TAB PO SCH (08:51)
[2024-03-20] MEDS: CEFEPIME 2 GM in NA CHLORIDE 0.9% 100 ML IV SCH (08:52)
[2024-03-20] MEDS: VANCOMYCIN 1 GM in NA CHLORIDE 0.9% 250 ML IVPB SCH (08:53)
--- NOTE | 2024-03-20 12:07 | P.PN ---
Date of Service: 03/20/24 Subjective Awake, still with pain Tenderness to Palpation NPO at [address] Clifford ROS 10 point ROS as noted above, otherwise negative Physical Exam General: Alert and Oriented x3, NAD HEENT: Atraumatic, Normocephalic, PERRLA Neck: Supple, JVD not distended Respiratory: Clear to auscultation bilaterally, Symmetrical chest wall movement, on Room air Cardiovascular: No edema, Normal pulses, RRR, Normal S1 S2 Capillary refill: <2 Seconds Gastrointestinal: Normal bowel sounds, Soft and benign on palpation, ND/NT Musculoskeletal: No clubbing Integumentary: Other (Right breast abscess) Neurological: Normal speech, Normal tone Vitals Reviewed Problem list Acute right breast abscess Status post left breast infection Acute Hematuria Hypertensive Assessment and plan Acute right breast abscess Status post left breast infection -Ultrasound of right breast reports " Subareolar poorly defined early abscess or phlegmon, measuring up to 2.2 cm, with no drainable component at this time." -She reports taking Bactrim with her left breast infection this week, right breast abscess developed while on Bactrim -Nipple/areolar piercing one year ago -Clindamycin and cefazolin given in the ED -Cefepime and Vancomycin on the floor -Pain control -Consulted Dr. Clifford- likely surgery today Acute Hematuria -UA showing 2+ blood -Follow up outpatient Hypertensive -BP 151/98 -Norvasc -monitor Q4h DVT PPx SCDs Full code LOS 2 days Discharge Plan: Home Plan to discharge in: 48 Hours
[2024-03-20] MEDS: AMLODIPINE 5 MG TAB PO SCH (14:02)
--- NOTE | 2024-03-20 16:25 | P.PN ---
Date of Service: 03/20/24 S: Patient still having pain and tenderness in her right breast. Remains afebrile. Noticed that she thought she saw some drainage come out last night after she been using the warm compresses. O: The circumareolar area looks french today, particularly on the right lateral superior portion of the areola. Seems to be some fluctuance or now. I do not actually see an open duct but an abscess appears to be forming. A: Abscess of the right breast P: I will take her to the operative room for incision, drainage, sharp debridement of this abscess of her right breast. The risks of this procedure have been discussed. The possibility of bleeding, infection, recurrence and scar formation were outlined. The fact that she will need a mammogram in about 6 weeks time was also explained. She understands and wants us to proceed.
[2024-03-20] MEDS ORDERED: MIDAZOLAM HCL 2 MG/2 ML INJ ONE (16:47)
[2024-03-20] MEDS ORDERED: FENTANYL CITR 100 MCG/2 ML ONE (16:47)
[2024-03-20] MEDS ORDERED: propofoL 200 MG/20 ML VIAL IV ONE (16:47)
[2024-03-20] MEDS ORDERED: KETOROLAC 30 MG/ML INJ ONE (16:48)
[2024-03-20] MEDS ORDERED: ONDANSETRON 4 MG/2 ML VIAL ONE (16:48)
[2024-03-20] MEDS ORDERED: dexAMETHasone 4 MG/ML VIAL ONE (16:48)
[2024-03-20] MEDS ORDERED: LIDOCAINE 1% MPF 5 ML VIAL ONE (16:48)
[2024-03-20 17:56] VITALS: O2SAT 100
--- NOTE | 2024-03-20 18:00 | P.OP ---
Preoperative diagnosis: Right breast abscess Postoperative diagnosis: The same Primary procedure: Incision, drainage, sharp debridement of abscess of the right breast Anesthesia: General Estimated blood loss: Send 10 cc Specimen: Cultures both aerobic and anaerobic were taken Operative Technique: The patient brought the operating room placed supine on the table. After the induction of adequate anesthesia, the area of the right breast was prepped with a Betadine solution, she was draped in the usual aseptic manner. Attention was turned towards the right nipple areolar complex. After careful inspection we could see an area of fullness on the right superior lateral aspect. Just at the junction of the areola with the skin this was injected with 0.25% Marcaine. A skin incision was made in the same area. Using a hemostat we gently broke down the loculations of this abscess. We encountered a large amount of thick purulent pus consistent with most likely MRSA. Cultures both aerobic and anaerobic were taken. Attention was now turned back towards the nipple itself. This patient had had a previous piercing with a bar. The medial insertion site of this had some purulent material draining from it. By placing a small IV cannula and they were able to irrigate this area out using Marcaine and saline solution. At this point in #2 nylon was placed into our incision and brought out again more superiorly just at the junction of the areola with the skin. The suture was then tied on itself to work as a drain during the postoperative period. At the end of the procedure the patient was in a stable condition was sent to the recovery room. Needle sponge instrument count were correct. Complications: None Drain(s): Other (#2 nylon) Transferred to: Recovery Room Condition: Good
[2024-03-20] MEDS: MORPHINE 2 MG/ML SYR IV ONE (21:47)
[2024-03-21 06:34] LABS: Absolute Lymphocytes (CBC) 1.1 K/uL (0.7-4.9); Absolute Monocytes 0.4 K/uL (0.1-1.3); Absolute Neutrophil 8.3 K/uL (1.8-8.0); Basophils % 0.4 % (0-1.3); Eosinophils % 0.1 % (0-4.4); Hematocrit 37.2 % (36.0-45.0); Hemoglobin 12.4 g/dL (12.0-15.0); Lymphocytes % 10.8 % (15.3-44.8); MCHC 33.3 g/dL (32.0-36.0); MCV 89.9 fL (80-100); MPV 9.4 fL (7.6-11.3); Monocytes % 3.6 % (3.3-12.3); Neutrophils % 85.1 % (41.7-73.7); Platelets 203 thou/uL (152-406); RBC Red Blood Cell Count 4.13 M/uL (3.86-4.86); Red Cell Distribution Width 12.3 % (12.1-15.2)
[2024-03-21] MEDS: ACETAMINOPHEN 325 MG TABLET PO PRN (06:46)
[2024-03-21 06:49] LABS: Magnesium 2.1 mg/dL (1.6-2.4); Phosphorus 2.7 mg/dL (2.5-4.9)
[2024-03-21 12:25] VITALS: BP 136/80; TEMP 97.9
--- NOTE | 2024-03-21 14:18 | P.DS ---
Admission Date: 03/19/24 Discharge Date: 03/21/24 Disposition: ROUTINE DISCHARGE Discharge Condition: GOOD Reason for Admission: right breast abscess Procedures: Incision, drainage, sharp debridement of right breast abscess Brief History of Present Illness: This patient, had pain and tenderness in the right breast for a few days prior to her presentation. Came to the ER for diagnosis and treatment. Hospital Course: Patient was evaluated in the emergency room. The patient had an area of hard firm induration in her right subareolar area. The following day it had developed into an abscess. Return to the operating room where she underwent an incision, drainage, sharp debridement of this abscess. She was admitted postoperatively for observation and pain control. Today she is up ambulating, the wound is clean, the patient feels much better and there is less erythema and induration in the area. She has been on IV antibiotics. On discharge we will give her some pain medicine, and recommend that she continue the Bactrim DS 1 p.o. twice daily that she was given and complete the course of that when she gets home. She will remove the suture from her wound on Friday, and follow-up with me on Friday. Patient is content with this. Vital Signs/Physical Exam: Temp Pulse Resp BP Pulse Ox 97.9 F 63 16 136/80 100 03/21/24 12:00 03/21/24 12:00 03/21/24 12:00 03/21/24 12:00 03/21/24 12:00 Laboratory Data at Discharge: WBC 9.80 thou/uL (4.3-10.9) 03/21/24 06:12 Hgb 12.4 g/dL (12.0-15.0) 03/21/24 06:12 Hct 37.2 % (36.0-45.0) 03/21/24 06:12 Plt Count 203 thou/uL (152-406) 03/21/24 06:12 Sodium 136 mEq/L (136-145) 03/21/24 06:12 Potassium 4.0 mEq/L (3.5-5.1) D 03/21/24 06:12 BUN 7 mg/dL (7-18) 03/21/24 06:12 Creatinine 0.58 mg/dL (0.55-1.02) 03/21/24 06:12 Glucose 106 mg/dL (74-106) 03/21/24 06:12 Phosphorus 2.7 mg/dL (2.5-4.9) 03/21/24 06:12 Magnesium 2.1 mg/dL (1.6-2.4) 03/21/24 06:12 Total Bilirubin < 0.2 mg/dL (0.2-1.0) L 03/19/24 10:48 AST < 10 U/L (15-37) L 03/19/24 10:48 ALT < 14 U/L (13-56) 03/19/24 10:48 Alkaline Phosphatase 65 U/L (45-117) 03/19/24 10:48 Home Medications: NK [No Home Meds] 03/19/24 Physician Discharge Instructions: Mammogram in 6 weeks Followup: Shamir Clifford MD [ACTIVE - CAN ADMIT] - NONE,NONE [Primary Care Provider] -
--- NOTE | 2024-03-22 10:53 | P.DS ---
Admission Date: 03/19/24 Discharge Date: 03/21/24 Disposition: ROUTINE DISCHARGE Discharge Condition: GOOD Reason for Admission: right breast abscess Brief History of Present Illness: Diagnosis Acute right breast abscess Status post left breast infection Acute Hematuria Hypertensive HPI 03/19/24 Crissy Bazzi is a 29 year old female with no significant Pmhx who presents to the ED with discomfort to the right breast. She is s/p bilateral nipple/areolar piercing one year ago. She reports coming to the ED when the left breast started to hurt and present with an infection, she was discharged with bactrim on Wednesday 03/14 and the infection is now cleared up. Today she presents with the right breast abscess while on bactrim. Laboratory evaluation unremarkable, hemodynamically stable. Ultrasound of right breast reports " Subareolar poorly defined early abscess or phlegmon, measuring up to 2.2 cm, with no drainable component at this time." Crissy will be admitted to hospitalist service for further evaluation and treatment of right breast abscess. General surgery consulted. Hospital Course: Crissy Bazzi is a pleasant 29 year old female with no significant PMhx who was admitted to the [facility] on 03/19/24 for Right breast abscess. Crissy presented to the ED with c/o right breast discomfort. She was seen a few days prior for her left breast that was treated with bactrim and appeared the infection had cleared. US right breast reports "Subareolar poorly defined early abscess or phlegmon, measuring up to 2.2 cm, with no drainable component at this time." Dr. Clifford was consulted and performed an I and D on 03/20. Discomfort is still present, she remained afebrile this admission, WBC WNL, and tolerated IV antibiotics. She denies fever, chills, nausea, vomiting, and headache. Dr. Clifford has cleared her for discharge with plans to follow up at his office. He has recommended she schedule a mammogram in 6 weeks. On 03/21/24, Crissy was seen on morning rounds and deemed medically stable for discharge. Crissy was discharged with instructions to schedule follow-up appointments with PCP and Dr. Clifford. Crissy was provided prescriptions from Dr. Clifford and instructions to continue taking bactrim. Physical Exam General: AAO x3, NAD HEENT: Atraumatic, Normocephalic, PERRLA Neck: Supple, JVD not distended Respiratory: Clear to auscultation bilaterally, nonlabored breathing on Room air Cardiovascular: No edema, Normal pulses, Regular rate and rhythm, Normal S1 S2 Capillary refill: <2 Seconds Gastrointestinal: Soft on palpation, ND/NT, Normal bowel sounds, Musculoskeletal: No clubbing Integumentary: Right breast dressing CDI Neurological: Normal speech, Normal tone Vital Signs/Physical Exam: Temp Pulse Resp BP Pulse Ox 97.9 F 63 16 136/80 100 03/21/24 12:00 03/21/24 12:00 03/21/24 12:00 03/21/24 12:00 03/21/24 12:00 Laboratory Data at Discharge: WBC 9.80 thou/uL (4.3-10.9) 03/21/24 06:12 Hgb 12.4 g/dL (12.0-15.0) 03/21/24 06:12 Hct 37.2 % (36.0-45.0) 03/21/24 06:12 Plt Count 203 thou/uL (152-406) 03/21/24 06:12 Sodium 136 mEq/L (136-145) 03/21/24 06:12 Potassium 4.0 mEq/L (3.5-5.1) D 03/21/24 06:12 BUN 7 mg/dL (7-18) 03/21/24 06:12 Creatinine 0.58 mg/dL (0.55-1.02) 03/21/24 06:12 Glucose 106 mg/dL (74-106) 03/21/24 06:12 Phosphorus 2.7 mg/dL (2.5-4.9) 03/21/24 06:12 Magnesium 2.1 mg/dL (1.6-2.4) 03/21/24 06:12 Total Bilirubin < 0.2 mg/dL (0.2-1.0) L 03/19/24 10:48 AST < 10 U/L (15-37) L 03/19/24 10:48 ALT < 14 U/L (13-56) 03/19/24 10:48 Alkaline Phosphatase 65 U/L (45-117) 03/19/24 10:48 Home Medications: NK [No Home Meds] 03/19/24 Physician Discharge Instructions: PROBLEM: (list out Acute Problems for the Current visit) GOAL: Clear understanding of disease process INSTRUCTIONS: Dressing change daily or as needed, complete full course of antibiotic treatment, practice appropriate hand hygeine, pain meds sent to RX, remove stitch as instructed by Dr. Clifford on Friday03/24/24, call office at [phone] to schedule follow up appt Mammogram in 6 weeks Diet: Regular Activity: as tolerated DME DME: Date Ordered: Name of Company: [employer] Services Needed: None Name of Company: Date or Referral: IMMUNIZATION Influenza Vaccine Indicated: No Influenza Vaccine Given: Date Given: Pneumonia Vaccine Indicated: No Pneumonia Vaccine Given: Date Given: Followup: Shamir Clifford MD [ACTIVE - CAN ADMIT] - NONE,NONE [Primary Care Provider] -
== END 2024-03-21 15:26 | disposition home or self-care (01) | DRG 581 ==
LOC: ER 09:30 → ERHOLD 13:33 → 2ND 15:01
PROVIDERS: ADMIT Internal Medicine; ATTEND Internal Medicine
PROC: 0JD60ZZ Extraction of Chest Subcutaneous Tissue and Fascia, Open Approach (ICD-10-PCS; principal; 2024-03-20 15:00)
DX: N61.1 Abscess of the breast and nipple (principal); I10 Essential (primary) hypertension; R31.9 Hematuria, unspecified
CPT/HCPCS: 36415; 76882; 80048; 80053; 81001; 81025; 83735; 84100; 85025; 87070; 87075; 87205; 96365; 96367; 96375; 99285; J0692; J1100; J2001; J2250; J2270; J2405; J2704; J3010; J3475; J7030; J7050

== ENCOUNTER 2024-07-30 19:20 | Emergency (ER) | payer OTHER ==
[2024-07-30 20:29] LABS: SARS-CoV-2 Antigen CONTROL BLUE LINE VIS/BG OK; SARS-CoV-2 Antigen Rapid Res Negative (Negative)
--- NOTE | 2024-07-30 20:40 | ER ---
Nurse's Notes [facility] Name: Crissy Bazzi Age: 29 yrs Sex: Female : 1995 Arrival Date: 07/30/2024 Time: 19:20 Bed 6 Private MD: Diagnosis: Viral infection, unspecified;15 weeks gestation of Presentation: 07/30 19:55 Chief complaint: Patient states: c/o fever, chills, headache, body aches, cough, sore al5 throat, and abdominal pain x2 days. states her brothers girlfriend had sore throat a couple of days ago. last taken tylenol last night. Coronavirus screen: chills, cough unrelated to allergies, fever, headache, muscle pain, shaking with chills, sore throat. Ebola Screen: No symptoms or risks identified at this time. Initial Sepsis Screen: Does the patient meet any 2 criteria? No. Patient's initial sepsis screen is negative. Does the patient have a suspected source of infection? No. Patient's initial sepsis screen is negative. Risk Assessment: Do you want to hurt yourself or someone else? Patient reports no desire to harm self or others. Onset of symptoms was July 28, 2024. 19:55 Method Of Arrival: Ambulatory al5 19:55 Acuity: FALLON 4 al5 Triage Assessment: 19:57 General: Appears in no apparent distress. comfortable, Behavior is calm, cooperative. al5 Pain: Complains of pain in generalized. EENT: Reports sore throat, fever, chills, body aches, headache. Neuro: Level of Consciousness is awake, alert, obeys commands, Oriented to person, place, time, situation. Cardiovascular: Capillary refill < 3 seconds Patient's skin is warm and dry. Respiratory: Reports cough that is Airway is patent Respiratory effort is even, unlabored, Respiratory pattern is regular, symmetrical. GI: Abdomen is non-distended, Reports lower abdominal pain, upper abdominal pain. : No signs and/or symptoms were reported regarding the genitourinary system. Derm: Skin is intact, is healthy with good turgor, Skin is pink, warm \T\ dry. normal. Musculoskeletal: No signs and/or symptoms reported regarding the musculoskeletal system. CASINO HOST: 20:00 LMP 04/15/2024, Verified, EDC 01/20/2025, Gestational age from LMP: 15 weeks 2 al5 days Historical: - Allergies: 19:57 No Known Allergies; al5 - PMHx: 19:57 None; al5 - PSHx: 19:57 None; al5 - Immunization history:: Adult Immunizations up to date. - Infectious Disease History:: Denies. - Social history:: Smoking status: Patient/guardian denies using tobacco. Screenin:00 [facility] ED Fall Risk Assessment (Adult) History of falling in the last 3 months, kj2 including since admission No falls in past 3 months (0 pts) Confusion or Disorientation No (0 pts) Intoxicated or Sedated No (0 pts) Impaired Gait No (0 pts) Mobility Assist Device Used No (0 pt) Altered Elimination No (0 pt) Score/Fall Risk Level 0 - 2 = Low Risk Maintained a safe environment, Hourly rounding (assess needs \T\ fall precautionary measures) done. Abuse screen: Denies threats or abuse. Denies injuries from another. Nutritional screening: No deficits noted. Tuberculosis screening: No symptoms or risk factors identified. Assessment: 22:00 General: Appears in no apparent distress. Behavior is calm, cooperative. Pain:. Neuro: kj2 Level of Consciousness is awake, alert, obeys commands, Oriented to person, place, time, situation. Cardiovascular: Patient's skin is warm and dry. Respiratory: Airway is patent Respiratory effort is unlabored. GI: No signs and/or symptoms were reported involving the gastrointestinal system. : No signs and/or symptoms were reported regarding the genitourinary system. 23:07 Reassessment: Patient appears in no apparent distress at this time. Patient and/or kj2 family updated on plan of care and expected duration. Pain level reassessed. Patient is alert, oriented x 3, equal unlabored respirations, skin warm/dry/pink. General: Appears in no apparent distress. comfortable, Behavior is calm, cooperative, appropriate for age. Pain: Denies pain. Neuro: Level of Consciousness is awake, alert, obeys commands, Oriented to person, place, time, situation, Appropriate for age. Cardiovascular: Denies chest pain, Capillary refill < 3 seconds in bilateral fingers Patient's skin is warm and dry. Respiratory: Reports cough that is non-productive, Airway is patent Respiratory effort is even, unlabored, Respiratory pattern is regular, symmetrical, Breath sounds are clear bilaterally. GI: No signs and/or symptoms were reported involving the gastrointestinal system. : No signs and/or symptoms were reported regarding the genitourinary system. EENT: No signs and/or symptoms were reported regarding the EENT system. Derm: No signs and/or symptoms reported regarding the dermatologic system. Musculoskeletal: No signs and/or symptoms reported regarding the musculoskeletal system. 07/31 00:06 Reassessment: Patient appears in no apparent distress at this time. Patient and/or bm8 family updated on plan of care and expected duration. Pain level reassessed. Patient is alert, oriented x 3, equal unlabored respirations, skin warm/dry/pink. Patient states feeling better. Patient states symptoms have improved. 00:31 Reassessment: Patient appears in no apparent distress at this time. Patient and/or bm8 family updated on plan of care and expected duration. Pain level reassessed. Patient is alert, oriented x 3, equal unlabored respirations, skin warm/dry/pink. Patient denies pain at this time. Patient states feeling better. Patient states symptoms have improved. Vital Signs: 07/30 19:55 BP 124 / 70; Pulse 89; Resp 18; Temp 98.9; Pulse Ox 99% on R/A; Weight 53.07 kg; Height al5 4 ft. 10 in. ; Pain 8/10; 22:36 BP 119 / 66; Pulse 82; Resp 17; Temp 98.8; Pulse Ox 100% ; vc1 23:07 BP 112 / 77; Pulse 88; Resp 16; Temp 98.8; Pulse Ox 100% ; Pain 0/10; kj2 07/31 00:06 BP 110 / 72; Pulse 85; Resp 17; Temp 98.7; Pulse Ox 100% ; Pain 0/10; bm8 00:31 BP 115 / 74; Pulse 80; Resp 17; Temp 98.7; Pulse Ox 100% ; Pain 0/10; bm8 07/30 19:55 Body Mass Index 24.45 (53.07 kg, 147.32 cm) al5 07/30 19:55 Pain Scale: Adult al5 23:07 Pain Scale: Adult kj2 07/31 00:06 Pain Scale: Adult bm8 00:31 Pain Scale: Adult bm8 Payne Coma Score: 07/30 23:07 Eye Response: spontaneous(4). Motor Response: obeys commands(6). Verbal Response: kj2 oriented(5). Total: 15. 07/31 00:06 Eye Response: spontaneous(4). Motor Response: obeys commands(6). Verbal Response: bm8 oriented(5). Total: 15. 00:31 Eye Response: spontaneous(4). Motor Response: obeys commands(6). Verbal Response: bm8 oriented(5). Total: 15. ED Course: 07/30 19:26 Patient arrived in ED. gm2 19:27 Daisy Bazzi PA-C is PHCP. sb4 19:27 Jeremiah Baldwin MD is Attending Physician. sb4 19:57 Triage completed. al5 19:59 Arm band placed on right wrist. Patient placed in waiting room, in view of staff al5 members, on pulse oximetry, Patient notified of wait time. 22:00 Patient has correct armband on for positive identification. Bed in low position. Call kj2 light in reach. Provided Education on: call light. 22:11 Danica Almodovar, RN is Primary Nurse. kj2 22:26 US OB Limited In Process Unspecified. EDMS 23:00 Missed attempt(s): 22 gauge in left antecubital area. Bleeding controlled, band aid sa1 applied, catheter tip intact. 23:05 Initial lab(s) drawn, by me, sent to lab. sa1 23:07 Client placed on continuous cardiac and pulse oximetry monitoring. NIBP monitoring kj2 applied. Pulse ox on. NIBP on. Door closed. Noise minimized. Warm blanket given. Pillow given. Head of bed elevated. 23:07 No provider procedures requiring assistance completed. kj2 23:21 Basic Metabolic Panel Sent. sa1 23:21 CBC with Diff Sent. sa1 07/31 00:31 Provided Education on: post er care. bm8 00:31 Patient did not have IV access during this emergency room visit. bm8 Administered Medications: 07/30 21:23 CANCELLED (Physician Discretion): [id number] mg PO once sb4 Medication: 23:07 VIS not applicable for this client. kj2 Outcome: 20:40 Discharge ordered by . sb4 23:53 Discharge ordered by . sb4 07/31 00:25 Discharge ordered by . sb4 00:31 Discharged to home ambulatory, bm8 00:31 Condition: stable 00:31 Discharge instructions given to patient, family, Instructed on discharge instructions, follow up and referral plans. no drinking with medication, no driving heavy equipment, medication usage, safety practices, Demonstrated understanding of instructions, follow-up care, medications, 00:33 Patient left the ED. bm8 Signatures: Dispatcher [employer] EDMS Kecia Kingston RN RN vc1 Daisy Bazzi PASofia PA-C sb4 Sury Bellamy gm2 Ravinder Suazo RN RN bm8 Zenobia Louis RN RN al5 Sultan Misty sa1 Danica Almodovar, RN RN kj2 Corrections: (The following items were deleted from the chart) 07/30 23:18 23:17 Missed attempt(s): 22 gauge in right antecubital area. Bleeding controlled, band sa1 aid applied, catheter tip intact. sa1
--- NOTE | 2024-07-30 20:40 | EDPHYS ---
Physician Documentation [facility] Name: Crissy Bazzi Age: 29 yrs Sex: Female : 1995 Arrival Date: 07/30/2024 Time: 19:20 Bed 6 Private MD: ED Physician Jeremiah Baldwin HPI: 07/30 20:52 This 29 yrs old Black Female presents to ER via Ambulatory with complaints of Flu sb4 Symptoms, Cough, Fever. 20:52 Patient reports flulike symptoms x 2 days. Been around people with similar symptoms. sb4 Has been taking [id number] medicine without significant improvement in symptoms. Denies any chest pain or shortness of breath. Is talking on the phone during triage. 21:28 patient later reveals that she is 4 months and has been experiencing sharp sb4 lower abdominal pains for the past few days and now wants that to be evaluated. saw an OB and had an US 7 weeks ago. denies any vaginal bleeding or spotting. no urinary symptoms. 1st . CHIEF OF STAFF: 20:00 LMP 04/15/2024, Verified, EDC 01/20/2025, Gestational age from LMP: 15 weeks 2 al5 days Historical: - Allergies: 19:57 No Known Allergies; al5 - PMHx: 19:57 None; al5 - PSHx: 19:57 None; al5 - Immunization history:: Adult Immunizations up to date. - Infectious Disease History:: Denies. - Social history:: Smoking status: Patient/guardian denies using tobacco. ROS: 20:53 Cardiovascular: Negative for chest pain, palpitations, and edema, sb4 20:53 Constitutional: Positive for chills, fever, malaise, 20:53 ENT: Positive for sore throat, 20:53 Respiratory: Positive for cough, 20:53 All other systems are negative, Exam: 21:28 Constitutional: This is a well developed, well nourished patient who is awake, alert, sb4 and in no acute distress. Head/Face: Normocephalic, atraumatic. Eyes: Extra-ocular motions intact. Periorbital areas with no swelling, redness, or edema. ENT: Mucous membranes moist. Cardiovascular: Regular rate and rhythm with a normal S1 and S2. Respiratory: No increased work of breathing, no retractions or nasal flaring. Abdomen/GI: Soft, non-tender, no distension. Skin: Warm, dry with normal turgor. Normal color with no rashes, no lesions, and no evidence of cellulitis. MS/ Extremity: Pulses equal, no cyanosis. Neurovascular intact. Full, normal range of motion. Vital Signs: 19:55 BP 124 / 70; Pulse 89; Resp 18; Temp 98.9; Pulse Ox 99% on R/A; Weight 53.07 kg; Height al5 4 ft. 10 in. ; Pain 8/10; 22:36 BP 119 / 66; Pulse 82; Resp 17; Temp 98.8; Pulse Ox 100% ; vc1 23:07 BP 112 / 77; Pulse 88; Resp 16; Temp 98.8; Pulse Ox 100% ; Pain 0/10; kj2 07/31 00:06 BP 110 / 72; Pulse 85; Resp 17; Temp 98.7; Pulse Ox 100% ; Pain 0/10; bm8 00:31 BP 115 / 74; Pulse 80; Resp 17; Temp 98.7; Pulse Ox 100% ; Pain 0/10; bm8 07/30 19:55 Body Mass Index 24.45 (53.07 kg, 147.32 cm) al5 07/30 19:55 Pain Scale: Adult al5 23:07 Pain Scale: Adult kj2 07/31 00:06 Pain Scale: Adult bm8 00:31 Pain Scale: Adult bm8 Denise Coma Score: 07/30 23:07 Eye Response: spontaneous(4). Motor Response: obeys commands(6). Verbal Response: kj2 oriented(5). Total: 15. 07/31 00:06 Eye Response: spontaneous(4). Motor Response: obeys commands(6). Verbal Response: bm8 oriented(5). Total: 15. 00:31 Eye Response: spontaneous(4). Motor Response: obeys commands(6). Verbal Response: bm8 oriented(5). Total: 15. MDM: 07/30 19:31 Medical Screening Exam initiated sb4 07/31 00:31 Data reviewed: vital signs, nurses notes, lab test result(s), radiologic studies, and sb4 as a result, I will discharge patient. Counseling: I had a detailed discussion with the patient and/or guardian regarding the historical points, exam findings, and any diagnostic results supporting the discharge/admit diagnosis, lab results, radiology results, the need for outpatient follow up, an OB/Gyne specialist, to return to the emergency department if symptoms worsen or persist or if there are any questions or concerns that arise at home. 07/30 19:58 Order name: SARS RAPID; Complete Time: 20:31 sb4 07/30 19:58 Order name: Flu; Complete Time: 20:31 sb4 07/30 19:58 Order name: Strep sb4 07/30 20:32 Order name: Throat Culture EDMI 07/30 21:27 Order name: Basic Metabolic Panel; Complete Time: 23:59 sb4 07/30 21:27 Order name: CBC with Diff; Complete Time: 23:52 sb4 07/30 21:27 Order name: Test, Urine; Complete Time: 00:14 sb4 07/30 21:27 Order name: Quantitative Hcg; Complete Time: 23:59 sb4 07/30 21:27 Order name: Urinalysis w/ reflexes; Complete Time: 00:14 sb4 07/30 21:27 Order name: US OB Limited; Complete Time: 23:00 sb4 07/30 21:27 Order name: Labs collected and sent; Complete Time: 23:10 sb4 Administered Medications: 07/30 21:23 CANCELLED (Physician Discretion): mg PO once sb4 Disposition Summary: 07/31/24 00:25 Discharge Ordered Notes: Location: Home(07/31/24 00:25) sb4 Problem: new(07/31/24 00:25) sb4 Symptoms: have improved(07/31/24 00:25) sb4 Condition: Stable(07/31/24 00:25) sb4 Diagnosis - Viral infection, unspecified sb4 - 15 weeks gestation of sb4 Followup: sb4 - With: Private Physician - When: 1 week - Reason: Recheck today's complaints, Re-evaluation by your physician Discharge Instructions: - Discharge Summary Sheet sb4 - Abdominal Pain During , Sbxg-nv-[id number] sb4 - Uterine Fibroids, Cmxv-[id number] sb4 - Viral Illness, Adult sb4 Forms: - Patient Portal Instructions sb4 - Leadership Thank You Letter sb4 Addendum: 08/01/2024 09:52 Co-signature as Attending Physician, Jeremiah Baldwin MD I agree with the assessment and c maynard plan of care. Signatures: Dispatcher [employer] Jeremiah Valentino MD MD cha Brown, Sophia, PA-C PA-C sb4 Zenobia Louis, RN RN al5 Corrections: (The following items were deleted from the chart) 07/30 21:23 20:40 predniSONE PO 40 mg PO once ordered. sb4 sb4 21:24 20:40 Home sb4 sb4 21:24 20:40 new sb4 sb4 21:24 20:40 are unchanged sb4 sb4 21:24 20:40 Stable sb4 sb4 21:24 20:40 Acute upper respiratory infection, unspecified sb4 sb4 21:33 21:28 patient later reveals that she is 4 months and has been experiencing sb4 sharp lower abdominal pains for the past few days and now wants that to be evaluated. saw an OB and had an US 7 weeks ago. denies any vaginal bleeding or spotting. no urinary symptoms. . sb4 23:53 23:53 Home sb4 sb4 23:53 23:53 new sb4 sb4 23:53 23:53 are unchanged sb4 sb4 23:53 23:53 Stable sb4 sb4 23:53 23:53 Threatened sb4 sb4 07/31 00:17 07/30 21:27 IV Saline Lock ordered. sb4 sb4
--- NOTE | 2024-07-30 22:58 | RAD REPORT ---
EXAM:OB Limited CLINICAL HISTORY: with abdominal pain TECHNIQUE: Limited OB ultrasound performed FINDINGS: The uterus measures 11 x 7 x 10 cm. 3.3 cm fibroid lower uterine segment. Right ovary normal in size and echotexture. Left ovary not seen secondary to overlying bowel gas. Right and left adnexa unremarkable Single live anterior in breech presentation. [place]-rump length 9.3 cm. RP activity 137 bpm. Amniotic fluid normal. Placenta anterior. No subchorionic/retroplacental bleed seen. Cervix 3.7 cm IMPRESSION: Single live intrauterine in breech presentation. Estimated gestational age 15 weeks 2 days PRANAV 01/19/2025 If a survey is desired it should be performed in approximately 3 weeks.
[2024-07-30 23:39] LABS: Absolute Eosinophils 0.1 K/uL (0-0.5); Absolute Lymphocytes (CBC) 1.4 K/uL (0.7-4.9); Absolute Monocytes 0.5 K/uL (0.1-1.3); Absolute Neutrophil 5.6 K/uL (1.8-8.0); Basophils % 0.2 % (0-1.3); Eosinophils % 0.9 % (0-4.4); Hematocrit 34.4 % (36.0-45.0); Hemoglobin 11.8 g/dL (12.0-15.0); Lymphocytes % 18.5 % (15.3-44.8); MCHC 34.3 g/dL (32.0-36.0); MCV 87.5 fL (80-100); MPV 9.8 fL (7.6-11.3); Monocytes % 6.4 % (3.3-12.3); Platelets 173 thou/uL (152-406); RBC Red Blood Cell Count 3.93 M/uL (3.86-4.86)
[2024-07-30 23:45] LABS: Anion Gap 9.1 mEq/L (5.0-15.0); Potassium 4.1 mEq/L (3.5-5.1)
[2024-07-31 00:13] LABS: Specific Gravity 1.006 (1.005-1.030); Sqamous Epithelial <5 /HPF (None Seen); Urine Bacteria None Seen /HPF (<20); Urine Bilirubin NEGATIVE (Negative); Urine Blood Negative (Negative); Urine Clarity Clear (Clear); Urine Color Colorless (Yellow); Urine Culture Reflex Order NOT NEEDED; Urine Glucose NEGATIVE (Negative); Urine Ketones NEGATIVE (Negative); Urine Microscopic Reflex YN ORDER UMIC; Urine Nitrite NEGATIVE (Negative); Urine Protein NEGATIVE (Negative); Urine RBC <5 /HPF (None Seen); Urine Urobilinogen Normal (Normal); Urine WBC <5 /HPF (<5); Urine pH 6.5 (5.0-7.0)
[2024-07-31 00:14] LABS: Specific Gravity 1.006 (1.005-1.030)
[2024-07-31 00:40] VITALS: O2SAT 100
[2024-07-31 00:43] VITALS: TEMP 98.7
[2024-07-31 00:44] VITALS: BP 115/74
== END 2024-07-31 00:33 | disposition home or self-care (01) ==
LOC: ER 19:20
DX: O26.892 Other specified pregnancy related conditions, second trimester (principal); B34.9 Viral infection, unspecified; Z3A.15 15 weeks gestation of pregnancy; Z11.52 Encounter for screening for COVID-19
CPT/HCPCS: 36415; 76815; 80048; 81001; 81025; 84702; 85025; 87070; 87081; 87804; 87811; 99284

== ENCOUNTER 2024-10-02 12:45 | Emergency (ER) | payer OTHER ==
[2024-10-02] MEDS ORDERED: NA CHLORIDE 0.9% 1,000 ML ONE (13:46)
--- NOTE | 2024-10-02 14:12 | RAD REPORT ---
EXAM: OB Limited HISTORY: ABD CRAMPING, COMPARISON: 07/30/2024 TECHNIQUE: Multiple grayscale and color Doppler images were obtained in a transabdominal pelvic ultra sound. Spectral analysis of the Doppler waveforms of the ovaries were performed. FINDINGS: UTERUS: Single IUP identified in cephalic position. Positive heart tones. The femur length measures 4.4 cm which is consistent with 24 week 4 day. heart rate is measured at 1 36 bpm. The cervix is closed measuring 4.9 cm. The amniotic fluid volume is normal. Maximum vertical pocket measures at least 6.7 cm. RIGHT OVARY: Normal flow without focal mass. LEFT OVARY: Normal flow without focal mass. IMPRESSION: Single live intrauterine with estimated age of 24 week 4 day. Closed cervix. Am niotic fluid volume is within normal limits.
[2024-10-02 14:28] LABS: Specific Gravity 1.009 (1.005-1.030); Urine Bilirubin NEGATIVE (Negative); Urine Blood Negative (Negative); Urine Clarity Clear (Clear); Urine Color Colorless (Yellow); Urine Glucose NEGATIVE (Negative); Urine Ketones NEGATIVE (Negative); Urine Microscopic Reflex YN NO UMIC; Urine Nitrite NEGATIVE (Negative); Urine Protein NEGATIVE (Negative); Urine Urobilinogen Normal (Normal)
[2024-10-02 14:29] LABS: Specific Gravity 1.009 (1.005-1.030)
[2024-10-02 14:30] LABS: Absolute Eosinophils 0.1 K/uL (0-0.5); Absolute Lymphocytes (CBC) 1.4 K/uL (0.7-4.9); Absolute Monocytes 0.6 K/uL (0.1-1.3); Absolute Neutrophil 6.4 K/uL (1.8-8.0); Basophils % 0.3 % (0-1.3); Eosinophils % 0.7 % (0-4.4); Hematocrit 34.8 % (36.0-45.0); Lymphocytes % 16.6 % (15.3-44.8); MCH 30.7 pg (27.0-35.0); MCHC 34.5 g/dL (32.0-36.0); MCV 89.2 fL (80-100); MPV 9.4 fL (7.6-11.3); Monocytes % 6.7 % (3.3-12.3); Neutrophils % 75.7 % (41.7-73.7); Nucleated Red Blood Cells % 0.2 % (0-0); Platelets 142 thou/uL (152-406); RBC Red Blood Cell Count 3.91 M/uL (3.86-4.86)
[2024-10-02 14:45] LABS: Anion Gap 7.7 mEq/L (5.0-15.0); Potassium 3.7 mEq/L (3.5-5.1)
--- NOTE | 2024-10-02 16:11 | ER ---
Nurse's Notes [facility] Name: Crissy Bazzi Age: 29 yrs Sex: Female : 1995 Arrival Date: 10/02/2024 Time: 12:45 Bed 16 Private MD: Diagnosis: Fall on same level from slipping, tripping and stumbling with subsequent striking against object;24 weeks gestation of Presentation: 10/02 13:01 Chief complaint: Patient states: Hit stomach on corner of cabinet in hallway 30 minutes ld1 ago. Keep having sharp shooting pains to abdomen. Coronavirus screen: At this time, the client does not indicate any symptoms associated with coronavirus-19. Ebola Screen: No symptoms or risks identified at this time. Initial Sepsis Screen: Does the patient meet any 2 criteria? No. Patient's initial sepsis screen is negative. Does the patient have a suspected source of infection? No. Patient's initial sepsis screen is negative. Risk Assessment: Do you want to hurt yourself or someone else? Patient reports no desire to harm self or others. Onset of symptoms was October 02, 2024 at 13:02. 13:01 Method Of Arrival: Ambulatory ld1 13:01 Acuity: FALLON 3 ld1 Triage Assessment: 13:02 General: Appears in no apparent distress. comfortable, Behavior is calm, cooperative, ld1 appropriate for age. Pain: Complains of pain in abdomen Pain does not radiate. Pain currently is 7 out of 10 on a pain scale. Quality of pain is described as sharp, shooting, Pain began 30 min ago. Is continuous. EENT: No signs and/or symptoms were reported regarding the EENT system. Neuro: Level of Consciousness is awake, alert, obeys commands, Oriented to person, place, time, situation. Cardiovascular: Capillary refill < 3 seconds Patient's skin is warm and dry. Respiratory: Airway is patent Respiratory effort is even, unlabored. GI: Abdomen is round non-distended. : No signs and/or symptoms were reported regarding the genitourinary system. Derm: No signs and/or symptoms reported regarding the dermatologic system. Musculoskeletal: No signs and/or symptoms reported regarding the musculoskeletal system. Historical: - Allergies: 13:02 No Known Allergies; ld1 - Home Meds: 13:02 None [Active]; ld1 - PMHx: 13:02 None; ld1 - PSHx: 13:02 None; ld1 - Immunization history:: Adult Immunizations up to date. - Infectious Disease History:: Denies. - Social history:: Smoking status: Patient denies any tobacco usage or history of. Screenin:05 [facility] ED Fall Risk Assessment (Adult) History of falling in the last 3 months, db including since admission No falls in past 3 months (0 pts) Confusion or Disorientation No (0 pts) Intoxicated or Sedated No (0 pts) Impaired Gait No (0 pts) Mobility Assist Device Used No (0 pt) Altered Elimination No (0 pt) Score/Fall Risk Level 0 - 2 = Low Risk Oriented to surroundings, Maintained a safe environment. Abuse screen: Denies threats or abuse. Denies injuries from another. Nutritional screening: No deficits noted. Tuberculosis screening: No symptoms or risk factors identified. Assessment: 13:35 Reassessment: PATIENT NOT IN ROOM. db 14:05 Reassessment: Patient appears in no apparent distress at this time. Patient and/or db family updated on plan of care and expected duration. Pain level reassessed. Patient is alert, oriented x 3, equal unlabored respirations, skin warm/dry/pink. PT AMBULATORY TO RESTROOM. General: Appears in no apparent distress. comfortable, Behavior is calm, cooperative. Neuro: Level of Consciousness is awake, alert, obeys commands, Oriented to person, place, time, situation. Cardiovascular: Capillary refill < 3 seconds Patient's skin is warm and dry. Respiratory: Airway is patent Respiratory effort is even, unlabored, Respiratory pattern is regular, symmetrical. 16:33 Reassessment: Patient appears in no apparent distress at this time. Patient and/or db family updated on plan of care and expected duration. Pain level reassessed. Patient is alert, oriented x 3, equal unlabored respirations, skin warm/dry/pink. Vital Signs: 13:01 BP 125 / 63; Pulse 94; Resp 18; Pulse Ox 100% on R/A; Weight 65.77 kg; Height 4 ft. 10 ld1 in. ; Pain 7/10; 14:17 BP 112 / 60; Pulse 65; Resp 16; Pulse Ox 99% on R/A; db 16:00 BP 100 / 55; Pulse 79; Resp 16; Pulse Ox 100% ; db 13:01 Body Mass Index 30.30 (65.77 kg, 147.32 cm) ld1 13:01 Pain Scale: Adult ld1 ED Course: 12:48 Patient arrived in ED. al6 13:02 Triage completed. ld1 13:02 Arm band placed on right wrist. ld1 13:21 Jeremiah Baldwin MD is Attending Physician. magali 13:45 Tracy Millan, RN is Primary Nurse. db 14:05 Patient has correct armband on for positive identification. Bed in low position. Call db light in reach. Side rails up X 1. Pulse ox on. NIBP on. Warm blanket given. Pillow given. 14:07 Patient moved back from ultrasound. db 14:08 US OB Limited In Process Unspecified. EDMS 14:15 Initial lab(s) drawn, by me, sent to lab. Inserted saline lock: 22 gauge in left db antecubital area, using aseptic technique. Blood collected. Flushed with 10 mL NS. 14:15 Urine collected: clean catch specimen. db 16:34 Provided Education on: DISCHARGE AND FOLLOWUP. db 16:34 No provider procedures requiring assistance completed. IV discontinued, intact, db bleeding controlled, No redness/swelling at site. Administered Medications: 14:15 Drug: NS 0.9% IV 1000 ml IV at 1000 ml once; to be given as a bolus over 60 minutes db Route: IV; Rate: 1000 ml; Site: left antecubital; 16:32 Follow up: Response: No adverse reaction; IV Status: Completed infusion; IV Intake: db 1000ml Medication: 14:05 VIS not applicable for this client. db Intake: 16:32 IV: 1000ml; Total: 1000ml. db Outcome: 16:10 Discharge ordered by . [facility] 16:34 Discharged to home ambulatory, with family, db 16:34 Condition: stable 16:34 Discharge instructions given to patient, Instructed on discharge instructions, follow up and referral plans. 16:35 Patient left the ED. db Signatures: Dispatcher [employer] EDMD Jeremiah Baldwin MD MD cha Sims, Lauren, RN RN ld1 Tracy Millan, RN RN db Antonia Flynn al6 Corrections: (The following items were deleted from the chart) 13:03 13:02 PSHx: Unable to Obtain; ld1 ld1
--- NOTE | 2024-10-02 16:11 | EDPHYS ---
Physician Documentation [facility] Name: Crissy Bazzi Age: 29 yrs Sex: Female : 1995 Arrival Date: 10/02/2024 Time: 12:45 Bed 16 Private MD: ED Physician Jeremiah Baldwin HPI: 10/02 16:04 This 29 yrs old Black Female presents to ER via Ambulatory with complaints of Abdominal magali Injury - 24weeks . 16:04 Trauma demographics: County: The injury occurred in [place] Location of Injury: The magali injury occurred at home. Mechanism of injury: Fall: into cabinet. Associated injuries: The patient sustained injury to the abdomen, contusion. The patient has not experienced similar symptoms in the past. Historical: - Allergies: 13:02 No Known Allergies; ld1 - Home Meds: 13:02 None [Active]; ld1 - PMHx: 13:02 None; ld1 - PSHx: 13:02 None; ld1 - Immunization history:: Adult Immunizations up to date. - Infectious Disease History:: Denies. - Social history:: Smoking status: Patient denies any tobacco usage or history of. ROS: 16:05 Constitutional: Negative for fever, chills, and weight loss, Eyes: Negative for injury, magali pain, redness, and discharge, ENT: Negative for injury, pain, and discharge, Neck: Negative for injury, pain, and swelling, Cardiovascular: Negative for chest pain, palpitations, and edema, Respiratory: Negative for shortness of breath, cough, wheezing, and pleuritic chest pain, Back: Negative for injury and pain, : Negative for injury, bleeding, discharge, and swelling, MS/Extremity: Negative for injury and deformity, Skin: Negative for injury, rash, and discoloration, Neuro: Negative for headache, weakness, numbness, tingling, and seizure, Psych: Negative for depression, anxiety, suicide ideation, homicidal ideation, and hallucinations, Allergy/Immunology: Negative for hives, rash, and allergies, Endocrine: Negative for neck swelling, polydipsia, polyuria, polyphagia, and marked weight changes, Hematologic/Lymphatic: Negative for swollen nodes, abnormal bleeding, and unusual bruising, 16:05 Abdomen/GI: Positive for abdominal pain, abdominal cramps, of the right lower quadrant and left lower quadrant, Exam: 16:05 Constitutional: This is a well developed, well nourished patient who is awake, alert, magali and in no acute distress. Head/Face: Normocephalic, atraumatic. Eyes: Pupils equal round and reactive to light, extra-ocular motions intact. Lids and lashes normal. Conjunctiva and sclera are non-icteric and not injected. Cornea within normal limits. Periorbital areas with no swelling, redness, or edema. ENT: Nares patent. No nasal discharge, no septal abnormalities noted. Tympanic membranes are normal and external auditory canals are clear. Oropharynx with no redness, swelling, or masses, exudates, or evidence of obstruction, uvula midline. Mucous membranes moist. Neck: Trachea midline, no thyromegaly or masses palpated, and no cervical lymphadenopathy. Supple, full range of motion without nuchal rigidity, or vertebral point tenderness. No Meningismus. Chest/axilla: Normal chest wall appearance and motion. Nontender with no deformity. No lesions are appreciated. Cardiovascular: Regular rate and rhythm with a normal S1 and S2. No gallops, murmurs, or rubs. Normal PMI, no JVD. No pulse deficits. Respiratory: Lungs have equal breath sounds bilaterally, clear to auscultation and percussion. No rales, rhonchi or wheezes noted. No increased work of breathing, no retractions or nasal flaring. Back: No spinal tenderness. No costovertebral tenderness. Full range of motion. Skin: Warm, dry with normal turgor. Normal color with no rashes, no lesions, and no evidence of cellulitis. MS/ Extremity: Pulses equal, no cyanosis. Neurovascular intact. Full, normal range of motion., bilateral aka Neuro: Awake and alert, GCS 15, oriented to person, place, time, and situation. Cranial nerves II-XII grossly intact. Motor strength 5/5 in all extremities. Sensory grossly intact. Cerebellar exam normal. Normal gait. Psych: Awake, alert, with orientation to person, place and time. Behavior, mood, and affect are within normal limits. 16:05 Abdomen/GI: Inspection: distension, gravid appearance, is noted, Bowel sounds: normal, Palpation: abdomen is soft and non-tender, in all quadrants, Liver: no appreciated palpable abnormalities, Hernia: not appreciated, 16:05 Musculoskeletal/extremity: Tendon exam: specific tendon testing normal through active and passive range of motion DVT Exam: No signs of deep vein thrombosis. no pain, no swelling, no tenderness, negative Homans' sign noted on exam, no appreciated bluish discoloration, no erythema, no increased warmth, Vital Signs: 13:01 BP 125 / 63; Pulse 94; Resp 18; Pulse Ox 100% on R/A; Weight 65.77 kg; Height 4 ft. 10 ld1 in. ; Pain 7/10; 14:17 BP 112 / 60; Pulse 65; Resp 16; Pulse Ox 99% on R/A; db 16:00 BP 100 / 55; Pulse 79; Resp 16; Pulse Ox 100% ; db 13:01 Body Mass Index 30.30 (65.77 kg, 147.32 cm) ld1 13:01 Pain Scale: Adult ld1 MDM: 13:21 Medical Screening Exam initiated magali 16:07 Differential diagnosis: intra-abdominal injury, 24 weeks preg Data reviewed: vital magali signs, nurses notes, lab test result(s), radiologic studies, CT scan, plain films, ultrasound. Consideration of Admission/Observation Escalation of care including admission/observation considered. Independent interpretation of the following test(s) in the Emergency Department Radiology Department Ultrasound: My interpretation is usg. Historians other than the Patient: pt well infotrmed. Care significantly affected by the following chronic conditions: none. Counseling: I had a detailed discussion with the patient and/or guardian regarding the historical points, exam findings, and any diagnostic results supporting the discharge/admit diagnosis, lab results, radiology results, the need for outpatient follow up, for definitive care, an OB/Gyne specialist. 10/02 13:24 Order name: Abo/rh Typing; Complete Time: 15:31 [facility] 10/02 13:24 Order name: Basic Metabolic Panel; Complete Time: 15: [facility] 10/02 13:24 Order name: CBC with Diff; Complete Time: 15: [facility] 10/02 13:24 Order name: Test, Urine; Complete Time: 15: [facility] 10/02 13:24 Order name: Urinalysis w/ reflexes; Complete Time: 15:31 [facility] 10/02 13:24 Order name: US OB Limited; Complete Time: 15: [facility] 10/02 13:24 Order name: IV Saline Lock; Complete Time: 14:34 [facility] 10/02 13:24 Order name: Labs collected and sent; Complete Time: 14:34 [facility] 10/02 13:24 Order name: NPO; Complete Time: 14:34 [facility] Administered Medications: 14:15 Drug: NS 0.9% IV 1000 ml IV at 1000 ml once; to be given as a bolus over 60 minutes db Route: IV; Rate: 1000 ml; Site: left antecubital; 16:32 Follow up: Response: No adverse reaction; IV Status: Completed infusion; IV Intake: db 1000ml Disposition Summary: 10/02/24 16:10 Discharge Ordered Notes: Location: Home magali Problem: new magali Symptoms: have improved magali Condition: Stable magali Diagnosis - Fall on same level from slipping, tripping and stumbling with subsequent striking magali against object - 24 weeks gestation of magali Followup: magali - With: Private Physician - When: 2 - 3 days - Reason: Recheck today's complaints, Continuance of care, Re-evaluation by your physician Discharge Instructions: - Discharge Summary Sheet magali - Abdominal Pain, Adult magali - Abdominal Pain During magali - Blunt Abdominal Trauma magali - Care magali - Abdominal Pain, Adult, [id number] magali Forms: - Medication Reconciliation Form magali - Antibiotic Education magali - Prescription Opioid Use magali - Patient Portal Instructions magali - Leadership Thank You Letter magali - Work release form hb Signatures: Dispatcher [employer] Jeremiah Valentino MD MD cha Sims, Lauren RN RN ld1 Tracy Millan RN RN db Corrections: (The following items were deleted from the chart) 13:03 13:02 PSHx: Unable to Obtain; ld1 ld1
[2024-10-02 16:55] VITALS: BP 100/55; O2SAT 100
== END 2024-10-02 16:35 | disposition home or self-care (01) ==
LOC: ER 12:45
DX: O26.892 Other specified pregnancy related conditions, second trimester (principal); W01.10XA Fall on same level from slipping, tripping and stumbling with subsequent striking against unspecified object, initial encounter; Z3A.24 24 weeks gestation of pregnancy
CPT/HCPCS: 85025; 80048; 36415; 86900; 81025; 86901; 81003; 76815; J7030; 96360; 96361; 99285